=== PATIENT | female | born 1940 | race Caucasian/White ===

== ENCOUNTER → 2017-10-14 10:18 | Outpatient (CLI) | payer MEDICARE, OTHER, SELFPAY | PROVIDERS: PCP Family Medicine; Visit Provider Family Medicine | DX: M85.851 Other specified disorders of bone density and structure, right thigh (principal); Z78.0 Asymptomatic menopausal state; E07.9 Disorder of thyroid, unspecified; R29.890 Loss of height | CPT/HCPCS: 77080 ==

== ENCOUNTER → 2017-10-16 07:30 | Outpatient (CLI) | payer MEDICARE, OTHER, SELFPAY ==
[2017-10-16 09:44] LABS: Cholesterol 220 mg/dL (140-199); HDL Cholesterol 72 mg/dL (40-60); LDL Cholesterol Calculated 128 mg/dL (<100); Triglycerides 102 mg/dL (35-150)
== END ==
PROVIDERS: PCP Family Medicine; Visit Provider Family Medicine
DX: E78.2 Mixed hyperlipidemia (principal)
CPT/HCPCS: 36415; 80061

== ENCOUNTER 2018-01-19 09:34 | Observation (INO) | payer MEDICARE, OTHER, SELFPAY ==
[2018-01-19] VITALS (7 sets, daily range): BP systolic 128–159; BP diastolic 52–64; PULSE 51–60; RESP 8–16; TEMP 36.3–36.7; O2SAT 96–100; BMI 23.2
--- NOTE | 2018-01-19 10:27 | ED_ITS ---
HPI - Chest Pain General Chief Complaint: Chest Pain Stated Complaint: chest pains Time Seen by Provider: 01/19/18 10:16 Source: patient Mode of arrival: ambulatory Limitations: no limitations History of Present Illness HPI narrative: Patient is a 77-year-old female here for evaluation of off and on left-sided chest pressure. Patient states that it has been going on for the past couple days. She does state that it has radiated down her left arm and up to the left side of her neck. She states she is not currently having the pain. She states that it is not associated with any other symptoms to include shortness of breath or being worse with palpation or movement. States she had a stress test done 18 years ago which he states was normal. Has not had any cardiac workup since then. She states she does exercise 3 times a day. States that she has never had pain like this with exercise. She describes it as a pressure sensation with some sharp intermittent pains. When the symptoms do come on they last for various periods of time. Related Data Home Medications Medication Instructions Recorded Confirmed aspirin 1 tab PO QNOON 01/19/18 01/19/18 cholecalciferol (vitamin D3) 1 cap PO QNOON 01/19/18 01/19/18 [Vitamin D3] levothyroxine 1 tab PO DAILY 01/19/18 01/19/18 lisinopril 1 tab PO DAILY 01/19/18 01/19/18 sertraline 1 tab PO DAILY 01/19/18 01/19/18 triamterene-hydrochlorothiazid 1 tab PO DAILY 01/19/18 01/19/18 Allergies Allergy/AdvReac Type Severity Reaction Status Date / Time erythromycin base Allergy Severe Anxiety Verified 01/19/18 10:40 sulindac [From Clinoril] AdvReac Severe Anxiety Verified 01/19/18 10:40 Review of Systems Constitutional Denies fever(s) Eyes Denies blurry vision ENT Ears, Nose, Mouth, and Throat: Denies vertigo and Denies dizziness Cardiovascular Reports chest pain, Denies edema, Denies irregular heart rhythm, Denies palpitations, Denies dyspnea and Denies slow heart rate Respiratory Denies dyspnea Gastrointestinal Gastrointestinal: Denies abdominal pain, Denies nausea and Denies vomiting Genitourinary Denies dysuria Musculoskeletal Denies myalgias and Denies arthralgias Integumentary/Breasts Denies lesions and Denies rash Neurologic Denies vertigo and Denies dizziness Endocrine Denies palpitations Hematologic/Lymphatic Denies easy bleeding and Denies easy bruising FORMERLY [facility], [facility] Medical History Hypertension (Acute) Hypothyroid (Acute) Surgical History No pertinent past surgical history (Acute) Social History Smoking Status: Never smoker Exam Initial Vital Signs Initial Vital Signs: Vital Signs Temperature 97.3 F L 01/19/18 09:35 Pulse Rate 60 01/19/18 09:35 Respiratory Rate 13 01/19/18 09:35 Blood Pressure 159/59 H 01/19/18 09:35 Pulse Oximetry 100 01/19/18 09:35 Const General: cooperative, healthy appearing, comfortable, well developed, well groomed and No acute distress Orientation: alert, awake and oriented x3 HENMT Head: normal to inspection and normocephalic Chest Chest: normal inspection of the chest and normal palpation of entire chest wall Resp Effort & Inspection: normal respiratory effort Auscultation: clear to auscultation bilaterally Cardio Rate: regular rate Rhythm: regular rhythm Pulses: radial pulses present GI Inspection: non-distended Palpation: soft, No firm and No tender Back/Spine/Pelvis Back: No CVA tenderness Skin Lesions: no lesions Rashes: no rashes Neuro General: alert and oriented x3 Cognition: normal cognition Speech: speech normal Extrem General: normal to inspection, capillary refill normal and No edema Psych Appearance: grossly normal and well kempt Scores HEART Score Heart Score history: Moderately Suspicious Heart Score EKG: Normal Heart Score Age: > or = 65 years old Heart Score risk factors: 1-2 risk factors Heart Score troponin: < or = to normal limit Heart Score Total: 4 Course Orders Ordered: ED Orders 01/19/18 10:28 XR chest 1V Stat 01/19/18 10:30 Complete Blood Count AUTO DIFF Stat Comprehensive Metabolic Panel Stat Lipase Stat Thyroid Stimulating Hormone Stat Troponin I Stat 01/19/18 13:44 Troponin I Stat Discontinued Medications Aspirin (Aspirin Chew) 324 mg PO NOW ONE Stop: 01/19/18 10:28 Last Admin: 01/19/18 11:43 Dose: 324 mg Vital Signs - 8 hr 01/19/18 11:29 01/19/18 14:26 01/19/18 16:19 Pulse Rate 51 L 51 L 52 L Respiratory Rate 8 L 10 L 11 L Blood Pressure [Left Arm] 157/64 H 141/56 H 147/53 H Pulse Oximetry 96 97 100 01/19/18 18:38 Pulse Rate 53 L Respiratory Rate 10 L Blood Pressure [Left Arm] 158/54 H Pulse Oximetry 98 MDM - Chest Pain Lab Data Attestation: I reviewed the patient's lab results. Result diagrams: 01/19/18 10:30 01/19/18 10:30 Lab Results 01/19/18 01/19/18 01/19/18 Range/Units 10:30 10:30 10:30 WBC 6.7 (4.5-11.0) X10^3/uL RBC 4.02 (4.0-5.2) X10^6/uL Hgb 13.0 (12.0-16.0) g/dL Hct 38.1 (36-46) % MCV 94.8 (80-100) fL MCH 32.2 (26-34) PG MCHC 34.0 (30-36) % RDW 13.2 (11.6-14.8) % Plt Count 256 (150-400) X10^3/uL Neut % (Auto) 64.4 (50-75) % Lymph % (Auto) 23.7 L (25-40) % [place] % (Auto) 9.0 (3-14) % Eos % (Auto) 1.5 L (2-4) % Baso % (Auto) 1.4 (0-2) % Neut # (Auto) 4300 (2479-0446) /uL Sodium 142 (137-145) mmol/L Potassium 3.8 (3.4-5.1) mmol/L Chloride 104 (98-107) mmol/L Carbon Dioxide 29 (22-32) mmol/L BUN 29 H (7-17) mg/dL Creatinine 0.80 (0.52-1.04) mg/dL Estimated GFR > 60.0 (>60) mL/min BUN/Creatinine Ratio 36.3 H (6-22) Glucose 101 (80-110) mg/dL Calcium 9.4 (8.4-10.2) mg/dL Total Bilirubin 0.4 (0.2-1.3) mg/dL AST 23 (14-36) IU/L ALT 31 (9-52) IU/L Alkaline Phosphatase 55 (38-126) U/L Troponin I (0.01-0.034) ng/mL Total Protein 6.6 (6.3-8.2) g/dL Albumin 4.0 (3.5-5.0) g/dL Globulin 2.6 (1.7-4.1) g/dL Albumin/Globulin Ratio 1.5 (1.0-2.8) Lipase 150 (23-300) U/L TSH 3.78 (0.47-4.68) uIU/mL 01/19/18 01/19/18 Range/Units 10:30 13:44 WBC (4.5-11.0) X10^3/uL RBC (4.0-5.2) X10^6/uL Hgb (12.0-16.0) g/dL Hct (36-46) % MCV (80-100) fL MCH (26-34) PG MCHC (30-36) % RDW (11.6-14.8) % Plt Count (150-400) X10^3/uL Neut % (Auto) (50-75) % Lymph % (Auto) (25-40) % [place] % (Auto) (3-14) % Eos % (Auto) (2-4) % Baso % (Auto) (0-2) % Neut # (Auto) (8840-1338) /uL Sodium (137-145) mmol/L Potassium (3.4-5.1) mmol/L Chloride (98-107) mmol/L Carbon Dioxide (22-32) mmol/L BUN (7-17) mg/dL Creatinine (0.52-1.04) mg/dL Estimated GFR (>60) mL/min BUN/Creatinine Ratio (6-22) Glucose (80-110) mg/dL Calcium (8.4-10.2) mg/dL Total Bilirubin (0.2-1.3) mg/dL AST (14-36) IU/L ALT (9-52) IU/L Alkaline Phosphatase (38-126) U/L Troponin I < 0.012 0.014 (0.01-0.034) ng/mL Total Protein (6.3-8.2) g/dL Albumin (3.5-5.0) g/dL Globulin (1.7-4.1) g/dL Albumin/Globulin Ratio (1.0-2.8) Lipase (23-300) U/L TSH (0.47-4.68) uIU/mL Imaging Data Chest x-ray: Radiologist's impression: PROCEDURE: XR CHEST 1V INDICATIONS: chest pain TECHNIQUE: One view of the chest was acquired. COMPARISON: None. FINDINGS: Surgical changes and devices: Surgical clips in the left axilla. Status post left mastectomy. Lungs and pleura: No pleural effusions or pneumothorax. Lungs are clear. Mediastinum: Mediastinal contours appear normal. Heart size is normal. Bones and chest wall: No suspicious bony lesions. Overlying soft tissues appear unremarkable. IMPRESSION: No acute cardiopulmonary disease process. Dictated by: Melinda Park MD, PhD on 01/19/2018 at 10:39 Approved by: Melinda Park MD, PhD on 01/19/2018 at 10:40 ECG Data Attestation: I personally reviewed and interpreted this ECG as follows: Prior ECG tracings: not available for review Interpretation: Sinus rhythm Ventricular rate is 61 Normal axis Normal QRS Normal QTC Sinus arrhythmia No ST T wave changes MDM Narrative Medical decision making narrative: Patient was given aspirin here in the emergency department. She was not having any symptoms at the time of my exam. Her initial troponin was undetectable. Repeat troponin was negative but detectable. Initially patient did not want to be admitted to the hospital. After the 2nd troponin returned she stated that she would be willing to stay for further evaluation and stress testing. She does have a heart score of 4. Discussed the case with Dr. Griggs who is the patient's primary care doctor who will admit the patient for further evaluation and treatment. The patient agrees with the decision to admit. Discharge Plan Departure Patient Disposition: Admitted as Observation Clinical Impression: Chest pain Admit Date/Time: 01/19/18 17:03 Admit Provider: Cyril Griggs
[2018-01-19 10:41] LABS: Add Manual Diff / Slide Review NO; Basophils Percent Auto 1.4 % (0-2); Eosinophils Percent Auto 1.5 % (2-4); Hematocrit 38.1 % (36-46); Lymphocytes Percent Auto 23.7 % (25-40); Mean Corpuscular Hemoglobin 32.2 PG (26-34); Mean Corpuscular Volume 94.8 fL (80-100); Neutrophils Absolute Auto 4300 /uL (3000-5900); Neutrophils Percent Auto 64.4 % (50-75); Platelet Count 256 X10^3/uL (150-400); Red Blood Cell Count 4.02 X10^6/uL (4.0-5.2); Red Cell Distribution Width 13.2 % (11.6-14.8); White Blood Cell Count 6.7 X10^3/uL (4.5-11.0)
[2018-01-19 10:59] LABS: Alanine Aminotransferase 31 IU/L (9-52); Albumin Globulin Ratio 1.5 (1.0-2.8); Alkaline Phosphatase 55 U/L (38-126); Aspartate Aminotransferase 23 IU/L (14-36); BUN Creatinine Ratio 36.3 (6-22); Bilirubin Total 0.4 mg/dL (0.2-1.3); Blood Urea Nitrogen 29 mg/dL (7-17); Calcium 9.4 mg/dL (8.4-10.2); Carbon Dioxide 29 mmol/L (22-32); Chloride 104 mmol/L (98-107); Estimated Glomerular Filt Rate > 60.0 mL/min (>60); Globulin 2.6 g/dL (1.7-4.1); Glucose 101 mg/dL (80-110); HEMOLYSIS < 15 (0-50); Lipase 150 U/L (23-300); Potassium 3.8 mmol/L (3.4-5.1); Sodium 142 mmol/L (137-145); Total Protein 6.6 g/dL (6.3-8.2)
--- NOTE | 2018-01-19 11:10 | PC.NURSE ---
report received from jimena CASTELLANOS
[2018-01-19 11:35] LABS: Thyroid Stimulating Hormone 3.78 uIU/mL (0.47-4.68)
[2018-01-19 11:40] LABS: Troponin I < 0.012 ng/mL (0.01-0.034)
[2018-01-19] MEDS: ASPIRIN 81 MG TAB 324 MG PO (11:43)
[2018-01-19 14:32] LABS: Troponin I 0.014 ng/mL (0.01-0.034)
--- NOTE | 2018-01-19 19:00 | PC.NURSE ---
pt unable to be transported up stairs due to room not clean
--- NOTE | 2018-01-19 19:31 | PM.HP.1 ---
History of Present Illness Date Patient Seen: 01/19/18 Time Patient Seen: 19:32 Chief complaint: chest pains Narrative: Patient presented to the emergency department with chest pain. Chest pain symptoms started on Friday. Moderate to severe. Left chest and left arm. Maybe there was some pain up into her neck. Pain was moderate intensity inconsistent. No associated symptoms such as palpitation. No shortness of breath. She was not nauseated. She did not feel weak or lightheaded. Symptoms persisted over the weekend but he is day got better and better and better. She became concerned this morning because her pain was still present. She had also woken up this morning with night sweats. Her pain not necessarily was worse. Her pain was not exertional. Described as pressure symptoms. She has never had this before. She was initially 2 concerned because it was on the left side on her chest wall. She previously has had breast cancer in that area. She talk to her partner who recommended her be evaluated. She does not have any cardiac history. She has a long history of high blood pressure. She is not on a statin. She does not regularly take an aspirin. She is in good health. She exercises daily she is a nonsmoker. Her pain is not present now. Past medical history hypertension hypothyroidism. Patient History Medical History Hypertension (Acute) Hypothyroid (Acute) Surgical History No pertinent past surgical history (Acute) Family & Social History Family History: Reviewed 01/19/18 by Cyril Griggs MD Tobacco & Substance use: Smoking Status Never smoker alcohol intake frequency a few times a week Meds Home Medications Medication Instructions Recorded Confirmed Type aspirin 1 tab PO QNOON 01/19/18 01/19/18 History cholecalciferol (vitamin D3) 1 cap PO QNOON 01/19/18 01/19/18 History [Vitamin D3] levothyroxine 1 tab PO DAILY 01/19/18 01/19/18 History lisinopril 1 tab PO DAILY 01/19/18 01/19/18 History sertraline 1 tab PO DAILY 01/19/18 01/19/18 History triamterene-hydrochlorothiazid 1 tab PO DAILY 01/19/18 01/19/18 History Allergies Allergy/AdvReac Type Severity Reaction Status Date / Time erythromycin base Allergy Severe Anxiety Verified 01/19/18 10:40 sulindac [From Clinoril] AdvReac Severe Anxiety Verified 01/19/18 10:40 Exam Vital Signs (past 8 hours): - 01/19/18 14:26 01/19/18 16:19 01/19/18 18:38 Pulse Rate 51 L 52 L 53 L Respiratory Rate 10 L 11 L 10 L Blood Pressure [Left Arm] 141/56 H 147/53 H 158/54 H Pulse Oximetry 97 100 98 Oxygen Delivery Method Room Air Narrative Exam Narrative: Gen.: Alert and oriented x3 no apparent distress. HEENT: NCAT PERRLA tympanic membranes are clear nares are patent oral mucosa is moist no tonsillar hypertrophy neck is supple without lymphadenopathy no thyroid enlargement. Cardio: S1-S2 regular rate and rhythm no murmurs appreciated. Respiratory: Lungs are clear to auscultation no wheezes or crackles normal respiratory effort. Abdomen: Soft nontender no rebound or guarding no liver spleen enlargement no appreciable hernias Extremities: Full range of motion no appreciable weakness no cyanosis or edema. Neurologic: Grossly intact. Objective Labs Result Diagrams: 01/19/18 10:30 01/19/18 10:30 Labs: Laboratory Results - last 24 hr 01/19/18 01/19/18 01/19/18 10:30 10:30 10:30 WBC 6.7 RBC 4.02 Hgb 13.0 Hct 38.1 MCV 94.8 MCH 32.2 MCHC 34.0 RDW 13.2 Plt Count 256 Neut % (Auto) 64.4 Lymph % (Auto) 23.7 L [place] % (Auto) 9.0 Eos % (Auto) 1.5 L Baso % (Auto) 1.4 Neut # (Auto) 4300 Sodium 142 Potassium 3.8 Chloride 104 Carbon Dioxide 29 BUN 29 H Creatinine 0.80 Estimated GFR > 60.0 BUN/Creatinine Ratio 36.3 H Glucose 101 Calcium 9.4 Total Bilirubin 0.4 AST 23 ALT 31 Alkaline Phosphatase 55 Troponin I Total Protein 6.6 Albumin 4.0 Globulin 2.6 Albumin/Globulin Ratio 1.5 Lipase 150 TSH 3.78 01/19/18 01/19/18 10:30 13:44 WBC RBC Hgb Hct MCV MCH MCHC RDW Plt Count Neut % (Auto) Lymph % (Auto) [place] % (Auto) Eos % (Auto) Baso % (Auto) Neut # (Auto) Sodium Potassium Chloride Carbon Dioxide BUN Creatinine Estimated GFR BUN/Creatinine Ratio Glucose Calcium Total Bilirubin AST ALT Alkaline Phosphatase Troponin I < 0.012 0.014 Total Protein Albumin Globulin Albumin/Globulin Ratio Lipase TSH Assessment & Plan Plan: Assessment/Plan Narrative: Patient admitted with chest pain. Rule out myocardial infarction. First set of cardiac enzyme is normal. EKG shows normal sinus rhythm without changes. She is on an aspirin. She has no pain at this time. Her blood pressure is stable but a little bit high. Will go ahead and admit her for further workup and evaluation with serial cardiac enzymes. Will repeat an EKG tomorrow morning. We will proceed with a nuclear medicine stress test if we are able to. Will provide with her home medication including her thyroid and blood pressure medication. Provide nitroglycerin and morphine if she has chest pain keep her on telemetry monitoring. I will hold off on beta blockade at this point as her 1st set of troponin was negative and we are going to try to stress her tomorrow. Follow this works out well she will probably go home tomorrow as well.
[2018-01-19 20:20] LABS: Troponin I 0.015 ng/mL (0.01-0.034)
[2018-01-20] VITALS (8 sets, daily range): BP systolic 120–156; BP diastolic 53–76; PULSE 51–59; RESP 16–18; TEMP 36.4–36.8; O2SAT 96–98
--- NOTE | 2018-01-20 | DI.ECHO.S_ITS ---
[facility]---------+ [facility] +---------+ : : [address] [place] [place] : : : : [id number] : : : : Phone: [phone] Echocardiogram Report + + :Name: CHRISTIANO MARRUFO Study Date: 01/20/2018 Height: 63 in : :[facility] Weight: 133 lb : : Gender: Female BSA: 1.6 m2 : :: 1940 Age: 77 yrs BP: 137/56 mmHg: :Reason For Study: Chest pain : : Performed By: Manisha Ohara : :Referring: ASHISH MANLEY : + + Interpretation Summary The ejection fraction is estimated to be 60-65%. There is no significant valvular heart disease. Procedure: A two-dimensional transthoracic echocardiogram with color flow and Doppler was performed. The study quality was technically adequate. There is no prior echocardiogram noted for this patient. The patient was in normal sinus rhythm during the exam. Left Ventricle: The left ventricle is normal in size, wall thickness, and systolic function without any focal wall motion abnormalities. The ejection fraction is estimated to be 60-65%. Diastolic parameters suggest probable normal left ventricular diastolic function and normal filling pressures. Right Ventricle: The right ventricle grossly appears normal in size with probable normal systolic function. Atria: The left atrial size is normal. Right atrial size is normal. The interatrial septum is intact with no evidence for an atrial septal defect. Mitral Valve: The mitral valve is normal in structure and function. There is trace mitral regurgitation. Aortic Valve: The aortic valve is trileaflet. The aortic valve opens well. No aortic regurgitation is present. Tricuspid Valve: The tricuspid valve is normal in structure and function. There is trace tricuspid regurgitation. The right ventricular systolic pressure is estimated to be at least 27 mmHg based on an estimated right atrial pressure of 3 mm Hg. Pulmonic Valve: The pulmonic valve is not well seen, but is grossly normal. There is trace pulmonic regurgitation. Great Vessels: The aortic root is normal size. The dimensions of the ascending aorta are normal. The IVC is of normal diameter and collapses greater than 50% with a sniff. This suggests a low right atrial pressure of 3 mm Hg. Pericardium/ Pleura There is no pericardial effusion. There is no pleural effusion. MMode/2D Measurements & Calculations LVIDd: 4.5 cm Ao root diam: 2.9 cm LVIDs: 3.2 cm Aortic Jxn: 2.4 cm FS: 30.3 % asc Aorta Diam: 3.1 cm IVSd: 0.90 cm Ao Arch Diam (Prox Trans): 2.9 cm LVPWd: 0.86 cm LV bellamy. diameter/BSA (cm/m^2): 2.8 LV sys. diameter/BSA (cm/m^2): 1.9 LA dimension: 3.4 cm RA long axis: 4.6 cm LA A2 area: 15.0 cm2 RA area: 13.7 cm2 LA A4 area: 16.3 cm2 RA vol: 34.3 ml LA length (vol): 4.5 cm RA : 21.1 ml/m2 LA vol: 46.3 ml IVC diam: 1.4 cm LA vol index: 28.5 ml/m2 RVDd major: 4.9 cm RVD1 (basal): 3.4 cm RVD2 (mid): 2.7 cm Doppler Measurements & Calculations Ao V2 max: 137.2 cm/sec MV E max chuy: 51.2 cm/sec Ao V2 mean: 92.1 cm/sec MV A max chuy: 71.4 cm/sec Ao max P.5 mmHg MV E/A: 0.72 Ao mean P.9 mmHg Med Peak E' Chuy: 6.5 cm/sec Ao V2 VTI: 33.2 cm E/E' med: 7.8 Lat Peak E' Chuy: 10.5 cm/sec E/E' lat: 4.9 E/e' average: 6.3 MV dec time: 0.34 sec MV P1/2t: 100.5 msec TR max chuy: 246.5 cm/sec MV P1/2t max chuy: 50.9 cm/sec TR max P.3 mmHg MVA(P1/2t): 2.2 cm2 PA V2 max: 78.9 cm/sec PA V2 mean: 51.8 cm/sec PA mean P.3 mmHg PA Accel Time: 0.14 sec Reading Physician:05:05 PM
--- NOTE | 2018-01-20 02:09 | PC.NURSE ---
Addendum entered by Raysa Minor R.N. 01/20/18 06:52: correction to previous charting: tele was SB this shift. Original Note: Addendum entered by Raysa Minor R.N. 01/20/18 06:52: Slept most of shift. Has had no chest pains tonight. Tele remains SR Original Note: Patient is alert and oriented. Breath sounds CTA with RA sat of 96%. HRR but bradycardic with rate in 50's; telemetry reading was SB. Denies nausea. BT present and abdomen is soft. Denies dysuria, frequency, urgency or incontinence. Independent with mobility. Denies pain. Fall risk score is low.
[2018-01-20 03:46] LABS: Add Manual Diff / Slide Review NO; Basophils Percent Auto 1.3 % (0-2); Eosinophils Percent Auto 2.6 % (2-4); Hemoglobin 12.9 g/dL (12.0-16.0); Lymphocytes Percent Auto 33.8 % (25-40); Mean Corpuscular HGB Conc 33.8 % (30-36); Mean Corpuscular Hemoglobin 32.4 PG (26-34); Mean Corpuscular Volume 95.8 fL (80-100); Monocytes Percent Auto 9.1 % (3-14); Neutrophils Absolute Auto 4000 /uL (3000-5900); Neutrophils Percent Auto 53.2 % (50-75); Platelet Count 235 X10^3/uL (150-400); Red Blood Cell Count 3.97 X10^6/uL (4.0-5.2); Red Cell Distribution Width 13.3 % (11.6-14.8); White Blood Cell Count 7.5 X10^3/uL (4.5-11.0)
[2018-01-20 03:55] LABS: Alanine Aminotransferase 31 IU/L (9-52); Albumin 3.6 g/dL (3.5-5.0); Albumin Globulin Ratio 1.4 (1.0-2.8); Alkaline Phosphatase 51 U/L (38-126); Aspartate Aminotransferase 22 IU/L (14-36); Bilirubin Total 0.5 mg/dL (0.2-1.3); Blood Urea Nitrogen 24 mg/dL (7-17); Calcium 9.3 mg/dL (8.4-10.2); Carbon Dioxide 29 mmol/L (22-32); Chloride 104 mmol/L (98-107); Cholesterol 220 mg/dL (140-199); Estimated Glomerular Filt Rate > 60.0 mL/min (>60); Globulin 2.5 g/dL (1.7-4.1); Glucose 100 mg/dL (80-110); HDL Cholesterol 65 mg/dL (40-60); HEMOLYSIS < 15 (0-50); LDL Cholesterol Calculated 137 mg/dL (<100); Potassium 3.7 mmol/L (3.4-5.1); Sodium 141 mmol/L (137-145); Total Protein 6.1 g/dL (6.3-8.2); Triglycerides 88 mg/dL (35-150)
[2018-01-20 04:06] LABS: Troponin I < 0.012 ng/mL (0.01-0.034)
--- NOTE | 2018-01-20 07:00 | DI.NM.S_ITS ---
PROCEDURE: MA WILBERT PERF SPECT SINGLE STUDY Exercise myocardial perfusion SPECT with gated imaging and ejection fraction RADIOPHARMACEUTICAL: 21.5 mCi Tc-99m sestamibi IV at peak exercise. INDICATIONS: chest pain TECHNIQUE: Radiopharmaceutical was injected at peak stress test. SPECT images were obtained, with perfusion images in short axis, horizontal long axis, and vertical long axis views. Gated images were reviewed using [employer] software. COMPARISON: [facility], , MA MYOCARDIAL PERFUSION, 04/11/2001, 12:22. CARDIAC STRESS: A standard Matt treadmill exercise tolerance test was performed by the patient under the supervision of an attending staff. The patient exercised for 3 minutes and 37 seconds reaching 4.6 METs; functional aerobic impairment (CAMELIA) is 0 %. Hemodynamic data: There is normal blood pressure and heart response to exercise. Patient achieved 101% of maximum predicted heart rate. Symptoms: Patient denied anginal chest pain during exercise. EKG: No diagnostic changes of ischemia; no ectopy. FINDINGS: Raw data: There is good labeling of myocardium by radiotracer. No significant motion artifacts. Uljn-vp-rhpva ratio is 0.15 (normal is less than 0.38 for sestamibi tracer, and less than 0.50 for thallium tracer). Left ventricular function: Gated images demonstrate normal left ventricle wall thickening. No segmental wall motion abnormalities. Left ventricle end diastolic volume is 80 mL. Left ventricle stress ejection fraction is 70%; normal values are above 45%. Myocardial perfusion: Small apical defect on stress images that improve with prone imaging, suggesting apical thinning artifact that was also seen on prior study dated 04/11/2001. IMPRESSION: Low risk, probably normal treadmill stress only nuclear test 1) Probably normal perfusion images. Small apical defect on stress images that improve with prone imaging, suggesting apical thinning artifact that was also seen on prior study dated 04/11/2001. 2) Normal left ventricular size, wall motion, and systolic function (post stress EF 70%). 3) No ECG evidence of ischemia. 4) No chest pain with exercise. 5) Average exercise capacity (4.6 METs, CAMELIA 0%). Target heart rate achieved. Appropriate blood pressure response to exercise. 6) Compared to the prior nuclear stress test done 04/11/2001, no significant change in perfusion images. Test results discussed with Dr. Cyril Griggs on 01/20/2018 at 1615. Dictated by: Madison Mcfadden MD on 01/20/2018 at 16:10 Approved by: Madison Mcfadden MD on 01/20/2018 at 16:16
--- NOTE | 2018-01-20 07:17 | P.DS_ITS ---
History of Present Illness Chief complaint: chest pains Narrative: Patient presented to the emergency department with chest pain. Chest pain symptoms started on Friday. Moderate to severe. Left chest and left arm. Maybe there was some pain up into her neck. Pain was moderate intensity inconsistent. No associated symptoms such as palpitation. No shortness of breath. She was not nauseated. She did not feel weak or lightheaded. Symptoms persisted over the weekend but he is day got better and better and better. She became concerned this morning because her pain was still present. She had also woken up this morning with night sweats. Her pain not necessarily was worse. Her pain was not exertional. Described as pressure symptoms. She has never had this before. She was initially 2 concerned because it was on the left side on her chest wall. She previously has had breast cancer in that area. She talk to her partner who recommended her be evaluated. She does not have any cardiac history. She has a long history of high blood pressure. She is not on a statin. She does not regularly take an aspirin. She is in good health. She exercises daily she is a nonsmoker. Her pain is not present now. Past medical history hypertension hypothyroidism. Discharge Providers Date of admission: 01/19/18 17:03 Discharge provider: Cyril Griggs MD Discharge Date: 01/20/18 Summary Discharge Diagnosis: Chest pain negative cardiac enzymes x3 normal EKG Hypertension Hyperlipidemia Hypothyroidism Remote history of breast cancer Hospital Course: Patient was admitted the hospital with chest pain. She had serial cardiac enzymes and troponins which were negative. She had no further episode or chest pain during hospital stay. EKG was reviewed which is normal. She was given aspirin Stephen inhibitors and no beta blockers because of potential possibility of doing stress test. At the time this note echocardiogram and stress test are pending. Due to patient's serial negative cardiac enzymes. Patient's history. I have a feeling these 2 tests will be unremarkable. We will proceed with echocardiogram. If stress test is not able to be done in the hospital today we will discharge the patient and she will go home and have a stress test as an outpatient. Exam Vital Signs (past 8 hours): - 01/20/18 01:55 01/20/18 02:01 01/20/18 05:33 Temperature 97.6 F 97.8 F Pulse Rate 51 L 52 L Respiratory Rate 17 18 Blood Pressure 125/68 120/65 Pulse Oximetry 96 96 98 Oxygen Delivery Method Room Air Narrative Exam Narrative: Gen.: Alert and oriented x3 no apparent distress. HEENT: NCAT PERRLA tympanic membranes are clear nares are patent oral mucosa is moist no tonsillar hypertrophy neck is supple without lymphadenopathy no thyroid enlargement. Cardio: S1-S2 regular rate and rhythm no murmurs appreciated. Respiratory: Lungs are clear to auscultation no wheezes or crackles normal respiratory effort. Abdomen: Soft nontender no rebound or guarding no liver spleen enlargement no appreciable hernias Extremities: Full range of motion no appreciable weakness no cyanosis or edema. Neurologic: Grossly intact. Objective Labs Result Diagrams: 01/20/18 03:35 01/20/18 03:35 Labs: Laboratory Results - last 24 hr 01/19/18 01/19/18 01/19/18 10:30 10:30 10:30 WBC 6.7 RBC 4.02 Hgb 13.0 Hct 38.1 MCV 94.8 MCH 32.2 MCHC 34.0 RDW 13.2 Plt Count 256 Neut % (Auto) 64.4 Lymph % (Auto) 23.7 L [place] % (Auto) 9.0 Eos % (Auto) 1.5 L Baso % (Auto) 1.4 Neut # (Auto) 4300 Sodium 142 Potassium 3.8 Chloride 104 Carbon Dioxide 29 BUN 29 H Creatinine 0.80 Estimated GFR > 60.0 BUN/Creatinine Ratio 36.3 H Glucose 101 Calcium 9.4 Total Bilirubin 0.4 AST 23 ALT 31 Alkaline Phosphatase 55 Troponin I Total Protein 6.6 Albumin 4.0 Globulin 2.6 Albumin/Globulin Ratio 1.5 Triglycerides Cholesterol LDL Cholesterol, Calc HDL Cholesterol Lipase 150 TSH 3.78 01/19/18 01/19/18 01/19/18 10:30 13:44 19:50 WBC RBC Hgb Hct MCV MCH MCHC RDW Plt Count Neut % (Auto) Lymph % (Auto) [place] % (Auto) Eos % (Auto) Baso % (Auto) Neut # (Auto) Sodium Potassium Chloride Carbon Dioxide BUN Creatinine Estimated GFR BUN/Creatinine Ratio Glucose Calcium Total Bilirubin AST ALT Alkaline Phosphatase Troponin I < 0.012 0.014 0.015 Total Protein Albumin Globulin Albumin/Globulin Ratio Triglycerides Cholesterol LDL Cholesterol, Calc HDL Cholesterol Lipase TSH 01/20/18 01/20/18 03:35 03:35 WBC 7.5 RBC 3.97 L Hgb 12.9 Hct 38.0 MCV 95.8 MCH 32.4 MCHC 33.8 RDW 13.3 Plt Count 235 Neut % (Auto) 53.2 Lymph % (Auto) 33.8 [place] % (Auto) 9.1 Eos % (Auto) 2.6 Baso % (Auto) 1.3 Neut # (Auto) 4000 Sodium 141 Potassium 3.7 Chloride 104 Carbon Dioxide 29 BUN 24 H Creatinine 0.80 Estimated GFR > 60.0 BUN/Creatinine Ratio 30.0 H Glucose 100 Calcium 9.3 Total Bilirubin 0.5 AST 22 ALT 31 Alkaline Phosphatase 51 Troponin I < 0.012 Total Protein 6.1 L Albumin 3.6 Globulin 2.5 Albumin/Globulin Ratio 1.4 Triglycerides 88 Cholesterol 220 H LDL Cholesterol, Calc 137 H HDL Cholesterol 65 H Lipase TSH Discharge Plan Discharge Plan Discharge Problem: Chest pain Under care of provider: Duc Discharge comment: Patient will be discharged after echo test and stress test. If stress test is not able to be completed in the hospital today please schedule for outpatient either in [place] or [facility] Discharge Med Rec/Prescriptions Prescriptions: Continue triamterene-hydrochlorothiazid 37.5-25 mg capsule 1 tab PO DAILY RF: 0 lisinopril 10 mg tablet 1 tab PO DAILY RF: 0 sertraline 50 mg tablet 1 tab PO DAILY RF: 0 levothyroxine 112 mcg tablet 1 tab PO DAILY RF: 0 aspirin 81 mg Tablet,Delayed Release (Dr/Ec) 1 tab PO QNOON RF: 0 cholecalciferol (vitamin D3) [Vitamin D3] 1,000 unit Capsule 1 cap PO QNOON RF: 0 Discharge Orders: Discharge (Order); Ordered 01/20/18 Ordered By: Cyril Griggs Discharge Data Attending Provider: Cyril Griggs Admit Date/Time: 01/19/18 17:03 Quality VTE Deep Vein Thrombosis/Pulmonary Embolism Present on Admission: No
[2018-01-20] MEDS: SODIUM CHLORIDE 0.9% FLUSH 10 ML IV (08:44)
[2018-01-20] MEDS: LEVOTHYROXINE 112 MCG TABLET PO (10:05)
[2018-01-20] MEDS: ACETAMINOPHEN 325 MG TABLET 650 MG PO (10:05)
--- NOTE | 2018-01-20 10:43 | PC.NURSE ---
Addendum entered by César Collins 01/20/18 13:38: Pt returned from stress test at 1320. Morning medications given per MAR. Plan for echocardiogram at 1500. Original Note: Assumed pt care at 0700. Pt is a/o x3. Pt is NPO prior to stress test at 1145. Pt aware that echocardiogram may be scheduled as outpatient if she cannot be seen today. Plan for D/C today pending stress test/echo results. Medicated per MAR with PRN Tylenol for pain of 5/10 headache. Bed in lowest, locked position with call light within reach. Care continues.
--- NOTE | 2018-01-20 11:16 | CM.DANOTE ---
DCP: Case received, EMR reviewed and met with patient. Introduced self and role. DCP template completed with information currently available. Patient is a 77 year old female who admitted yesterday evening to the care of the hospitalist team. PCP: Medicare/[facility] Patient came to hospital with symptoms of chest pain. Patient independent, pleasant, and alert and oriented. Lives alone in [facility], and has a significant other that lives down the street from her. Patient has no immediate needs at this time upon discharge. P: Patient is to be discharged home today after stress test is complete. Emily Rodgers RN/Architectural Drafting Instructor
--- NOTE | 2018-01-20 12:26 | PM.TREADMILL ---
Cardiac Stress Test Report Referral & Results Date Patient Seen: 01/20/18 Time Patient Seen: 12:26 Requesting provider: Cyril Griggs Indication: Chest pain Rest ECG: Unremarkable Procedure Note: Today following both written and verbal informed consent the patient was exercised according to a standard Matt protocol patient went for a total of 3 min 37 sec achieving a maximum heart rate of 147 maximum systolic blood pressure of 116. This is approximately 4.6 METS. Exercise was terminated at this point because of targets having been reached. Patient was also given Cardiolite through a previously started Hep-Lock IV by the nuclear medicine physician approximately 1 minute prior to the cessation of exercise. There are no ST-T segment changes identified Normal heart rate and blood pressure response Functional aerobic impairment rates about 0 on the sedentary scale or perhaps 5% on the active scale. Patient could have continued longer on the treadmill but she was stopped early because of having reach the targets for heart rate and blood pressure Impression: No ECG evidence of ischemia Perfusion imaging will be reported separately Please note: Actual ECG tracings can be found in the PACS system.
[2018-01-20] MEDS: ASPIRIN EC 325 MG TABLET PO (13:16)
[2018-01-20] MEDS: SERTRALINE 50 MG TABLET PO (13:16)
[2018-01-20] MEDS: LISINOPRIL 10 MG TABLET PO (13:16)
[2018-01-20] MEDS: TRIAMTERENE/HCTZ 37.5/25 TABLET 1 CAP PO (13:17)
--- NOTE | 2018-01-20 15:27 | PC.NURSE ---
Day Shift- Pt A&OX4, appropriate, able to make her needs known, Denies any chest pain throughout shift. No Light-headedness/dizziness on rest or ambulation. Able to eat breakfast then NPO, left for NM Stress Test at 1150 via wheelchair and transporter. Back around 1325, Telemetry monitoring placed back on. Pt had lunch, ambulated in halls with steady gait without symptoms. Awaiting to have ECHO around 3pm or just after. Tylenol po prn given X1 for 5/10 headache at 1000. Effective, headache resolved. Pt states is ready to go home today.
== END 2018-01-20 17:08 | disposition home or self-care (01) ==
LOC: ED 16:37 → AC 17:04
PROVIDERS: Admitting Provider Family Medicine; Emergency Provider Emergency Medicine; Visit Provider Family Medicine
DX: R07.9 Chest pain, unspecified (principal); I10 Essential (primary) hypertension; E78.5 Hyperlipidemia, unspecified; E03.9 Hypothyroidism, unspecified
CPT/HCPCS: 36415; 36591; 71045; 78451; 80053; 80061; 83690; 84443; 84484; 85025; 93005; 93010; 93016; 93017; 93018; 93306; 99217; 99220; 99223; 99238; 99283; 99284; G0378; A9502

== ENCOUNTER → 2018-06-02 07:52 | Outpatient (CLI) | payer MEDICARE, OTHER, SELFPAY ==
[2018-01-19 21:35] VITALS: BMI 23.2
[2018-06-02 08:52] LABS: Add Manual Diff / Slide Review NO; Basophils Absolute Auto 100 /uL (0-100); Basophils Percent Auto 1.4 % (0-2); Eosinophils Absolute Auto 200 /uL (0-450); Eosinophils Percent Auto 4.1 % (2-4); Hematocrit 39.5 % (36-46); Hemoglobin 13.1 g/dL (12.0-16.0); Lymphocytes Absolute Auto 1800 /uL (1100-4500); Lymphocytes Percent Auto 33.5 % (25-40); Mean Corpuscular HGB Conc 33.1 % (30-36); Mean Corpuscular Volume 96.5 fL (80-100); Monocytes Absolute Auto 500 /uL (0-900); Monocytes Percent Auto 9.1 % (3-14); Neutrophils Absolute Auto 2700 /uL (1500-7000); Neutrophils Percent Auto 51.9 % (50-75); Platelet Count 265 X10^3/uL (150-400); Red Blood Cell Count 4.09 X10^6/uL (4.0-5.2); Red Cell Distribution Width 13.5 % (11.6-14.8); White Blood Cell Count 5.3 X10^3/uL (4.5-11.0)
[2018-06-02 09:20] LABS: Alanine Aminotransferase 39 IU/L (9-52); Albumin 4.2 g/dL (3.5-5.0); Albumin Globulin Ratio 1.4 (1.0-2.8); Alkaline Phosphatase 48 U/L (38-126); Aspartate Aminotransferase 25 IU/L (14-36); BUN Creatinine Ratio 34.4 (6-22); Bilirubin Total 0.5 mg/dL (0.2-1.3); Blood Urea Nitrogen 31 mg/dL (7-17); Calcium 9.6 mg/dL (8.4-10.2); Carbon Dioxide 29 mmol/L (22-32); Chloride 103 mmol/L (98-107); Cholesterol 238 mg/dL (140-199); Estimated Glomerular Filt Rate > 60.0 mL/min (>60); Globulin 2.9 g/dL (1.7-4.1); Glucose 93 mg/dL (80-110); HDL Cholesterol 64 mg/dL (40-60); HEMOLYSIS < 15 (0-50); LDL Cholesterol Calculated 153 mg/dL (<100); Potassium 4.3 mmol/L (3.4-5.1); Sodium 137 mmol/L (137-145); Total Protein 7.1 g/dL (6.3-8.2); Triglycerides 105 mg/dL (35-150)
[2018-06-02 09:54] LABS: TSH w/ Reflex to FT4 2.89 uIU/mL (0.47-4.68)
== END ==
PROVIDERS: PCP Family Medicine; Visit Provider Family Medicine
DX: C50.919 Malignant neoplasm of unspecified site of unspecified female breast (principal); E03.9 Hypothyroidism, unspecified; E78.5 Hyperlipidemia, unspecified
CPT/HCPCS: 36415; 80053; 80061; 84443; 85025

== ENCOUNTER 2018-10-20 07:39 | Day surgery (SDC) | payer MEDICARE, OTHER, SELFPAY ==
[2018-01-19 21:35] VITALS: BMI 23.2
[2018-10-20] MEDS: SODIUM CHLORIDE 0.9% 1,000 ML 200 ML IV (08:00)
[2018-10-20 08:10] VITALS: BP 147/66; PULSE 54; RESP 16; TEMP 36.1; O2SAT 100; BMI 22.6
--- NOTE | 2018-10-20 08:59 | PM.HP.1 ---
History of Present Illness Date Patient Seen: 10/20/18 Time Patient Seen: 08:50 Chief complaint: [id number] Narrative: Patient is a woman who is had here for screening colonoscopy. Her last exam was 6 years ago. She has a personal history of polyps. No family history of colon cancer. Patient History Medical History Hypertension (Acute) Hypothyroid (Acute) Breast cancer (Chronic) Depression (Chronic) GERD (gastroesophageal reflux disease) (Chronic) Hearing deficit (Chronic) Hypertension (Chronic) Hypothyroidism (Chronic ~1979) Osteopenia (Chronic ~2014) Psoriasis (Chronic ~2013) Vertigo (Chronic ~2012) Abnormal Pap smear of cervix (Resolved) Surgical History No pertinent past surgical history (Acute) Anesthesia (Resolved) History of hip replacement History of lumpectomy (~1989) History of total mastectomy (~2011) Family History Brother Age: 78 High cholesterol Overweight Mother Hypertension High cholesterol Stroke Father Dementia Grandfather Stroke Grandmother No problems noted. Grandmother Stomach cancer Social History (System 01/21/18 @ 08:13 by Venita Trevino) marital status: household members: none Smoking Status: Never smoker alcohol intake: current (1-3 A WEEK ) substance use type: does not use Family & Social History Family History Brother Age: 78 High cholesterol Overweight Mother Hypertension High cholesterol Stroke Father Dementia Grandfather Stroke Grandmother No problems noted. Grandmother Stomach cancer Social History: household members none Tobacco & Substance use: Smoking Status Never smoker alcohol intake current alcohol intake frequency a few times a week Substance Use Type does not use Meds Home Medications Medication Instructions Recorded Confirmed Type CHOLECALCIFEROL (VITAMIN D3) 1,000 iu PO QDAY #0 05/28/11 10/20/18 History (VITAMIN D3) aspirin 81 mg tablet,delayed 81 mg PO DAILY 10/21/17 10/20/18 History release levothyroxine 112 mcg tablet 112 mcg PO QDAY #90 tab 06/08/18 10/20/18 Rx lisinopril 10 mg tablet 10 mg PO QDAY #90 tab 06/08/18 10/20/18 Rx sertraline 50 mg tablet 50 mg PO QDAY #90 tab 06/08/18 10/20/18 Rx Allergies Allergy/AdvReac Type Severity Reaction Status Date / Time erythromycin base Allergy Mild N/V Verified 06/08/18 14:05 [ERYTHROMYCIN BASE] sulindac [From CLINORIL] Allergy Mild RASH Verified 06/08/18 14:05 BETA SYLWIA Allergy Mild UNKNOWN Uncoded 06/08/18 14:05 Review of Systems Review of Systems All systems reviewed & are unremarkable except as noted in HPI and below Exam Vital Signs (past 8 hours): - 10/20/18 08:10 Temperature 96.9 F L Pulse Rate 54 L Respiratory Rate 16 Blood Pressure 147/66 H Pulse Oximetry 100 Oxygen Delivery Method Room Air Narrative Exam Narrative: Pleasant cooperative patient no apparent distress. Lungs are clear to auscultation. No rales or rhonchi. Heart regular rate and rhythm no murmur gallop. Abdomen is soft nontender without mass. No obvious hernias. Patient is alert and oriented x3. Assessment & Plan Assessment & Plan narrative: The patient for a screening colonoscopy. I have discussed the procedure with them. Risks of bleeding, perforation which would necessitate major operation, failure to find remove all lesions, the potential tattoo were all discussed. All questions were answered. They wished to proceed.
--- NOTE | 2018-10-20 09:00 | PM.PREOP ---
Pre-operative Note Interval Note History & Physical reviewed/Exam performed by Physician: Yes Changes to H&P: No ASA Class (for procedural sedation): II
[2018-10-20] MEDS: fentaNYL 250 MCG/5 ML INJ IV (09:04)
[2018-10-20] MEDS: MIDAZOLAM 5 MG/5 ML VIAL IV (09:05)
--- NOTE | 2018-10-20 09:33 | PM.OP.ENDO ---
Operative Date/Time/Diagnoses Date of procedure: 10/20/18 Time of procedure: 09:33 Pre-op diagnosis: Screening exam. Last exam 6 years ago. History of polyps. Post-op diagnosis: same (Diverticulosis scattered in small number) Procedure & Clinicians Study performed: Colonoscopy Same procedure as scheduled: Yes Indications: Screening Surgeon: Charles Lewis Procedure Notes SCOAP/Timeout: Performed Procedure in detail: The patient was placed in the left lateral decubitus position and underwent IV sedation directed by the surgeon consisting of fentanyl and Versed. Digital exam was unremarkable. The scope was inserted and advanced through the rectum into the sigmoid, descending, transverse, and ascending colon. Diverticulosis was noted scattered through the colon but few in number. We had to apply pressure and insert a stiffener in order to reach the cecum.. The cecum was reached identified by the ileocecal valve and the appendiceal opening. The ileocecal valve was successfully cannulated. The terminal ileum was normal in appearance. The scope was gradually brought out. No Polyps were found. The scope ultimately was retroflexed in the rectum. The appearance was normal except some minor scarring.. The scope was removed and the patient tolerated the procedure well Scope withdrawal time: 9.5 minutes Sedation minutes: 31 Findings: diverticulosis Recommendations: Colonscopy in 5 years (Due to history of polyps) Follow up: as needed Disposition: PACU
[2018-10-20 09:36] VITALS: BP 124/52; PULSE 60; RESP 9; TEMP 36.6; O2SAT 93
[2018-10-20 09:41] VITALS: BP 111/51; PULSE 74; RESP 23; O2SAT 94
[2018-10-20 09:48] VITALS: BP 153/65; PULSE 57; RESP 14; O2SAT 95
[2018-10-20 09:53] VITALS: BP 153/65; PULSE 55; RESP 17; O2SAT 94
[2018-10-20 10:17] VITALS: BP 138/59; PULSE 50; RESP 17; TEMP 36.4; O2SAT 98
--- NOTE | 2018-10-20 10:22 | SUR.PHASEII ---
ready to go, dressed and left in stable condition.
== END 2018-10-20 10:16 | disposition home or self-care (01) ==
PROVIDERS: PCP Family Medicine; Visit Provider Specialist
PROC: 0DJD8ZZ Inspection of Lower Intestinal Tract, Via Natural or Artificial Opening Endoscopic (ICD-10-PCS; CPT 45378; principal; 2018-10-20 08:45)
DX: Z86.010 Personal history of colon polyps (principal); K57.30 Diverticulosis of large intestine without perforation or abscess without bleeding; I10 Essential (primary) hypertension; E03.9 Hypothyroidism, unspecified
CPT/HCPCS: G0105; 99152; 99153; J2250; J3010

== ENCOUNTER → 2019-06-08 07:56 | Outpatient (CLI) | payer MEDICARE, OTHER, SELFPAY ==
[2018-01-19 21:35] VITALS: BMI 23.2
[2019-06-08 08:45] LABS: Add Manual Diff / Slide Review NO; Basophils Absolute Auto 100 /uL (0-100); Basophils Percent Auto 1.2 % (0-2); Eosinophils Absolute Auto 200 /uL (0-450); Eosinophils Percent Auto 3.9 % (2-4); Hematocrit 43.7 % (36-46); Hemoglobin 14.6 g/dL (12.0-16.0); Lymphocytes Absolute Auto 2000 /uL (1100-4500); Lymphocytes Percent Auto 34.3 % (25-40); Mean Corpuscular HGB Conc 33.5 % (30-36); Mean Corpuscular Hemoglobin 32.5 PG (26-34); Monocytes Absolute Auto 600 /uL (0-900); Monocytes Percent Auto 9.4 % (3-14); Neutrophils Absolute Auto 3100 /uL (1500-7000); Neutrophils Percent Auto 51.2 % (50-75); Platelet Count 272 X10^3/uL (150-400); Red Cell Distribution Width 13.4 % (11.6-14.8)
[2019-06-08 09:04] LABS: Alanine Aminotransferase 18 IU/L (<35); Albumin 4.3 g/dL (3.5-5.0); Albumin Globulin Ratio 1.4 (1.0-2.8); Alkaline Phosphatase 63 U/L (38-126); Aspartate Aminotransferase 22 IU/L (14-36); BUN Creatinine Ratio 28.4 (6-22); Bilirubin Total 0.4 mg/dL (0.2-1.3); Blood Urea Nitrogen 23 mg/dL (7-17); Calcium 9.8 mg/dL (8.4-10.2); Carbon Dioxide 31 mmol/L (22-32); Chloride 102 mmol/L (98-107); Cholesterol 274 mg/dL (140-199); Estimated Glomerular Filt Rate > 60.0 mL/min (>60); Globulin 3.1 g/dL (1.7-4.1); Glucose 110 mg/dL (80-110); HDL Cholesterol 59 mg/dL (40-60); HEMOLYSIS < 15 (0-50); LDL Cholesterol Calculated 188 mg/dL (<100); Potassium 4.3 mmol/L (3.4-5.1); Sodium 138 mmol/L (137-145); Total Protein 7.4 g/dL (6.3-8.2); Triglycerides 136 mg/dL (35-150)
[2019-06-08 09:59] LABS: Thyroid Stimulating Hormone 2.92 uIU/mL (0.47-4.68)
== END ==
PROVIDERS: PCP Family Medicine; Referring Provider Family Medicine; Visit Provider Family Medicine
DX: E03.9 Hypothyroidism, unspecified (principal); E78.5 Hyperlipidemia, unspecified; I10 Essential (primary) hypertension
CPT/HCPCS: 36415; 80053; 80061; 84443; 85025

== ENCOUNTER → 2019-08-21 09:57 | Outpatient (CLI) | payer MEDICARE, OTHER, SELFPAY ==
[2018-01-19 21:35] VITALS: BMI 23.2
[2019-08-21 10:07] LABS: WBC Urine None Seen (0-5/HPF)
[2019-08-21 10:48] LABS: Appearance Urine UA CLEAR; Bilirubin Urine UA NEGATIVE (NEGATIVE); Glucose Urine UA NEGATIVE (Negative); Ketones Urine UA NEGATIVE (NEGATIVE); Leukocyte Esterase Urine UA NEGATIVE (NEGATIVE); Nitrite Urine UA NEGATIVE (Negative); Occult Blood Urine UA NEGATIVE (Negative); Protein Urine UA NEGATIVE (Negative); Specific Gravity Urine UA <=1.005 (1.000-1.035); Urobilinogen Urine UA 0.2 E.U./dL (0.2)
[2019-08-21 10:53] LABS: Color Urine UA Straw
[2019-08-21 11:35] LABS: Bacteria Urine Few (2-10); Culture Indicated Urine Cult Not Indicated; RBC Urine 0-1/HPF (0-5/HPF)
== END ==
PROVIDERS: PCP Family Medicine; Referring Provider Student in an Organized Health Care Education/Training Program; Visit Provider Student in an Organized Health Care Education/Training Program
DX: R30.0 Dysuria (principal)
CPT/HCPCS: 81001

== ENCOUNTER → 2019-10-29 08:02 | Outpatient (CLI) | payer MEDICARE, OTHER, SELFPAY ==
[2018-01-19 21:35] VITALS: BMI 23.2
[2019-10-29 10:20] LABS: Cholesterol 155 mg/dL (140-199); HDL Cholesterol 79 mg/dL (40-60); LDL Cholesterol Calculated 58 mg/dL (<100); Triglycerides 90 mg/dL (35-150)
== END ==
PROVIDERS: PCP Family Medicine; Referring Provider Family Medicine; Visit Provider Family Medicine
DX: E78.5 Hyperlipidemia, unspecified (principal); E78.2 Mixed hyperlipidemia
CPT/HCPCS: 36415; 80061

== ENCOUNTER → 2020-06-19 07:58 | Outpatient (CLI) | payer MEDICARE, OTHER, SELFPAY ==
[2018-01-19 21:35] VITALS: BMI 23.2
[2020-06-19 09:00] LABS: Add Manual Diff / Slide Review NO; Basophils Absolute Auto 100 /uL (0-100); Basophils Percent Auto 1.2 % (0-2); Eosinophils Absolute Auto 300 /uL (0-450); Eosinophils Percent Auto 4.1 % (2-4); Hematocrit 43.1 % (36-46); Hemoglobin 14.6 g/dL (12.0-16.0); Lymphocytes Absolute Auto 2000 /uL (1100-4500); Lymphocytes Percent Auto 33.1 % (25-40); Mean Corpuscular HGB Conc 33.8 % (30-36); Mean Corpuscular Hemoglobin 32.8 PG (26-34); Monocytes Absolute Auto 600 /uL (0-900); Monocytes Percent Auto 10.6 % (3-14); Neutrophils Absolute Auto 3100 /uL (1500-7000); Platelet Count 242 X10^3/uL (150-400); Red Blood Cell Count 4.44 X10^6/uL (4.0-5.2); Red Cell Distribution Width 14.1 % (11.6-14.8); White Blood Cell Count 6.1 X10^3/uL (4.5-11.0)
[2020-06-19 09:08] LABS: Alanine Aminotransferase 29 IU/L (<35); Albumin 4.2 g/dL (3.5-5.0); Albumin Globulin Ratio 1.5 (1.0-2.8); Alkaline Phosphatase 80 U/L (38-126); Aspartate Aminotransferase 27 IU/L (14-36); BUN Creatinine Ratio 33.3 (6-22); Bilirubin Total 0.6 mg/dL (0.2-1.3); Blood Urea Nitrogen 27 mg/dL (7-17); Calcium 9.6 mg/dL (8.4-10.2); Carbon Dioxide 29 mmol/L (22-32); Chloride 103 mmol/L (98-107); Cholesterol 166 mg/dL (140-199); Estimated Glomerular Filt Rate > 60.0 mL/min (>60); Globulin 2.8 g/dL (1.7-4.1); Glucose 108 mg/dL (80-110); HDL Cholesterol 68 mg/dL (40-60); HEMOLYSIS < 15 (0-50); LDL Cholesterol Calculated 77 mg/dL (<100); Potassium 4.6 mmol/L (3.4-5.1); Sodium 138 mmol/L (137-145); Triglycerides 103 mg/dL (35-150)
[2020-06-19 09:36] LABS: TSH w/ Reflex to FT4 0.96 uIU/mL (0.47-4.68)
== END ==
PROVIDERS: PCP Family Medicine; Referring Provider Family Medicine; Visit Provider Family Medicine
DX: E03.9 Hypothyroidism, unspecified (principal); E78.5 Hyperlipidemia, unspecified
CPT/HCPCS: 36415; 80053; 80061; 84443; 85025

== ENCOUNTER → 2021-06-21 08:02 | Outpatient (CLI) | payer MEDICARE, OTHER, SELFPAY ==
[2018-01-19 21:35] VITALS: BMI 23.2
[2021-06-21 09:30] LABS: Add Manual Diff / Slide Review NO; Basophils Absolute Auto 100 /uL (0-100); Basophils Percent Auto 1.2 % (0-2); Eosinophils Absolute Auto 200 /uL (0-450); Eosinophils Percent Auto 5.3 % (2-4); Hematocrit 42.6 % (36-46); Hemoglobin 14.3 g/dL (12.0-16.0); Lymphocytes Absolute Auto 1900 /uL (1100-4500); Lymphocytes Percent Auto 39.6 % (25-40); Mean Corpuscular HGB Conc 33.5 % (30-36); Mean Corpuscular Hemoglobin 32.4 PG (26-34); Mean Corpuscular Volume 96.6 fL (80-100); Monocytes Absolute Auto 500 /uL (0-900); Monocytes Percent Auto 10.9 % (3-14); Neutrophils Absolute Auto 2000 /uL (1500-7000); Platelet Count 236 X10^3/uL (150-400); Red Blood Cell Count 4.41 X10^6/uL (4.0-5.2); Red Cell Distribution Width 14.2 % (11.6-14.8); White Blood Cell Count 4.7 X10^3/uL (4.5-11.0)
[2021-06-21 10:08] LABS: Alanine Aminotransferase 29 IU/L (<35); Albumin 4.2 g/dL (3.5-5.0); Albumin Globulin Ratio 1.6 (1.0-2.8); Alkaline Phosphatase 62 U/L (38-126); Aspartate Aminotransferase 26 IU/L (14-36); BUN Creatinine Ratio 28.6 (6-22); Bilirubin Total 0.8 mg/dL (0.2-1.3); Blood Urea Nitrogen 24 mg/dL (7-17); Calcium 9.3 mg/dL (8.4-10.2); Carbon Dioxide 27 mmol/L (22-32); Chloride 106 mmol/L (98-107); Cholesterol 181 mg/dL (140-199); Estimated Glomerular Filt Rate > 60.0 mL/min (>60); Globulin 2.7 g/dL (1.7-4.1); Glucose 101 mg/dL (80-110); HDL Cholesterol 69 mg/dL (40-60); HEMOLYSIS < 15 (0-50); LDL Cholesterol Calculated 98 mg/dL (<100); Potassium 4.2 mmol/L (3.4-5.1); Sodium 139 mmol/L (137-145); Total Protein 6.9 g/dL (6.3-8.2); Triglycerides 70 mg/dL (35-150)
[2021-06-21 10:44] LABS: Thyroid Stimulating Hormone 1.02 uIU/mL (0.47-4.68)
== END ==
PROVIDERS: PCP Family Medicine; Referring Provider Physician Assistant; Visit Provider Physician Assistant
DX: E03.9 Hypothyroidism, unspecified (principal); E78.5 Hyperlipidemia, unspecified; F32.9 Major depressive disorder, single episode, unspecified; I10 Essential (primary) hypertension
CPT/HCPCS: 36415; 80053; 80061; 84443; 85025

== ENCOUNTER 2022-03-25 11:26 | Emergency (ER) | payer MEDICARE, OTHER, SELFPAY ==
[2018-01-19 21:35] VITALS: BMI 23.2
[2022-03-25] VITALS (18 sets, daily range): BP systolic 150–194; BP diastolic 60–117; PULSE 49–67; RESP 11–22; TEMP 36.6; O2SAT 96–99; BMI 24.7
--- NOTE | 2022-03-25 11:35 | DI.RAD.S_ITS ---
PROCEDURE: XR CHEST 1V INDICATIONS: chest pain TECHNIQUE: One view of the chest was acquired. COMPARISON: [facility], CR, XR CHEST 1V, 01/19/2018, 10:31. FINDINGS: Surgical changes and devices: Left axillary clips are seen. Mediastinal clips are also seen. Lungs and pleura: On this semiupright portable chest examination, no large pneumothorax or large pleural effusions are seen. No focal infiltrates are seen. Low lung volumes are noted. This causes a crowded appearance to the lung markings and limits evaluation. Mediastinum: Mediastinal contours appear normal. Heart size is normal. Calcification Bones and chest wall: No suspicious bony lesions. Age-appropriate bony degenerative changes are seen. Overlying soft tissues appear unremarkable. IMPRESSION: No acute cardiopulmonary process is seen. Postoperative and degenerative changes are seen. Dictated by: Germain Syed M.D. on 03/25/2022 at 11:07 Approved by: Germain Syed M.D. on 03/25/2022 at 11:09
[2022-03-25 12:04] LABS: Add Manual Diff / Slide Review NO; Basophils Absolute Auto 100 /uL (0-100); Eosinophils Absolute Auto 100 /uL (0-450); Hematocrit 40.6 % (36-46); Hemoglobin 13.4 g/dL (12.0-16.0); Lymphocytes Absolute Auto 1500 /uL (1100-4500); Lymphocytes Percent Auto 21.8 % (25-40); Mean Corpuscular HGB Conc 33.1 % (30-36); Mean Corpuscular Hemoglobin 32.3 PG (26-34); Mean Corpuscular Volume 97.5 fL (80-100); Monocytes Absolute Auto 500 /uL (0-900); Monocytes Percent Auto 7.2 % (3-14); Neutrophils Absolute Auto 4800 /uL (1500-7000); Platelet Count 257 X10^3/uL (150-400); Red Blood Cell Count 4.17 X10^6/uL (4.0-5.2); Red Cell Distribution Width 13.9 % (11.6-14.8); White Blood Cell Count 6.9 X10^3/uL (4.5-11.0)
[2022-03-25 12:21] LABS: Alanine Aminotransferase 29 IU/L (<35); Albumin 4.2 g/dL (3.5-5.0); Albumin Globulin Ratio 1.4 (1.0-2.8); Alkaline Phosphatase 66 U/L (38-126); Aspartate Aminotransferase 29 IU/L (14-36); BUN Creatinine Ratio 31.9 (6-22); Bilirubin Total 0.5 mg/dL (0.2-1.3); Blood Urea Nitrogen 23 mg/dL (7-17); Calcium 9.2 mg/dL (8.4-10.2); Carbon Dioxide 26 mmol/L (22-32); Chloride 106 mmol/L (98-107); Creatine Kinase 56 U/L (30-135); Estimated Glomerular Filt Rate > 60 mL/min (>60); Glucose 140 mg/dL (80-110); HEMOLYSIS 17 (0-50); Lipase 169 U/L (23-300); Potassium 3.5 mmol/L (3.4-5.1); Sodium 142 mmol/L (137-145); Total Protein 7.2 g/dL (6.3-8.2)
[2022-03-25 12:23] LABS: COVID19 -Nasal RAPID Negative (Negative)
[2022-03-25 12:32] LABS: Troponin I < 0.012 ng/mL (0.01-0.034)
[2022-03-25 12:50] LABS: PTT Partial Thromboplastin Tim 41 SECONDS (26-36)
--- NOTE | 2022-03-25 14:05 | ED.CHESTPAIN ---
HPI - Chest Pain General Chief Complaint: Chest Pain Stated Complaint: Left chest pain Time Seen by Provider: 03/25/22 11:44 Source: patient and EMS Mode of arrival: EMS Limitations: no limitations History of Present Illness HPI narrative: Patient is a 81-year-old female history of hypertension, hypothyroid hyperlipidemia, breast cancer with left-sided mastectomy, prior costochondritis presenting today with left-sided chest pain. She says it has been ongoing for about a week. It is definitely worse in certain positions, if she stretches her arm out she can reproduce it. She says it feels like when she is had costochondritis previously. She says that she does lift weights to try and stay healthy. She does not remember doing anything abnormal she is been lifting weights for long time. She denies any shortness of breath. She did take some Advil for pain and did not really help a lot. She said she started feeling some achiness and numbness down her left arm which what is what brought her to the ED today. Related Data Home Medications Medication Instructions Recorded Confirmed CHOLECALCIFEROL (VITAMIN D3) 1,000 iu PO QDAY ##0 05/28/11 06/19/21 (VITAMIN D3) vit C 250 mg-E 90 mg-zinc 40 1 tab PO QAM AND QPM 06/19/21 06/19/21 mg-copper 1 tq-xvhzce-madjpu chew tablet (PreserVision AREDS-2) Previous Rx's Medication Instructions Recorded atorvastatin 20 mg tablet 20 mg PO DAILY #90 tabs 06/19/21 levothyroxine 112 mcg tablet 112 mcg PO QDAY #90 tabs 06/19/21 (Synthroid) lisinopril 10 mg tablet 10 mg PO QDAY #90 tabs 06/19/21 sertraline 50 mg tablet (Zoloft) 50 mg PO QDAY #90 tabs 06/19/21 Allergies Allergy/AdvReac Type Severity Reaction Status Date / Time Beta-Blockers Allergy Mild UNKNOWN Verified 03/25/22 11:47 (Beta-Adrenergic Bloc erythromycin base Allergy Mild N/V Verified 06/19/21 10:19 [ERYTHROMYCIN BASE] sulindac [From CLINORIL] Allergy Mild RASH Verified 06/19/21 10:19 Review of Systems Review of Systems ROS Unobtainable: All systems reviewed & are unremarkable except as noted in HPI and below Patient History Medical History Abnormal Pap smear of cervix Breast cancer Depression GERD (gastroesophageal reflux disease) Hearing deficit Hypertension Hypertension Hypothyroid Hypothyroidism (~1979) Malignant neoplasm of female breast Osteopenia (~2014) Psoriasis (~2013) Vertigo (~2012) Surgical History Anesthesia History of hip replacement History of lumpectomy (~1989) History of total mastectomy (~2011) No pertinent past surgical history Family History Brother Age: 81 High cholesterol Overweight Mother Hypertension High cholesterol Stroke Father Dementia Grandfather Stroke Grandmother No problems noted. Grandmother Stomach cancer Social History marital status: household members: none Smoking Status: Never smoker alcohol intake: current (1-3 A WEEK ) substance use type: does not use Smoking Status: Never smoker alcohol intake frequency: a few times a week Substance Use Type: does not use Exam Initial Vital Signs Initial Vital Signs: Vital Signs Pulse Rate 59 L 03/25/22 11:29 Pulse Oximetry 99 03/25/22 11:29 GENERAL: Alert pleasant 81-year-old female HEENT: Head atraumatic,EOMI, pupils reactive, face symmetric, moist mucous membranes CARDIOVASCULAR: Regular rate and rhythm without murmurs, rubs or gallops. Pain is reproducible on left chest and left pectoral muscle definitely reproducible and positional RESPIRATORY: Breath sounds equal bilaterally, no wheezes rales or rhonchi. ABDOMEN: Soft, nontender. Normoactive bowel sounds all 4 quadrants. No guarding or rebound. EXTREMITIES: Normal range of motion, no clubbing or edema. Neurovascularly intact NEUROLOGICAL: Alert and oriented x4. SKIN: Warm, dry, no laceration, no petechiae, no rashes or lesions. Scores HEART Score Heart Score history: Slightly Suspicious Heart Score EKG: Normal Heart Score Age: > or = 65 years old Heart Score risk factors: 1-2 risk factors Heart Score troponin: < or = to normal limit Heart Score Total: 3 Course Orders Ordered: ED Orders 03/25/22 11:20 Complete Blood Count AUTO DIFF Stat Comprehensive Metabolic Panel Stat Lipase Stat Magnesium Stat Partial Thromboplastin Time Stat Prothrombin Time INR Stat Troponin & CK Cardiac Panel Stat 03/25/22 11:35 XR chest 1V Stat EKG-12 Lead Stat 03/25/22 12:00 COVID19 -Nasal RAPID/Pre-Proc Stat 03/25/22 13:44 Trop I [Troponin I] Stat 03/25/22 14:00 EKG-12 Lead Stat Discontinued Medications Aspirin (Aspirin 81 Mg Chew Tab) 324 mg PO NOW ONE Stop: 03/25/22 11:36 Last Admin: 03/25/22 12:02 Dose: Not Given Documented By: KAREEM Vital Signs Vital signs: Vital Signs - 8 hr 03/25/22 12:00 03/25/22 12:02 03/25/22 12:02 Pulse Rate 54 L 56 L Respiratory Rate 20 18 Blood Pressure 167/75 H Pulse Oximetry 99 99 03/25/22 12:30 03/25/22 12:30 03/25/22 13:00 Pulse Rate 62 Respiratory Rate 20 Blood Pressure 181/84 H 179/88 H Pulse Oximetry 98 03/25/22 13:00 03/25/22 13:30 03/25/22 13:31 Pulse Rate 50 L 50 L 52 L Respiratory Rate 17 19 20 Blood Pressure Pulse Oximetry 98 97 96 03/25/22 13:31 03/25/22 14:00 03/25/22 14:01 Pulse Rate 51 L Respiratory Rate 20 Blood Pressure 194/80 H 172/75 H Pulse Oximetry 97 03/25/22 14:01 03/25/22 14:30 03/25/22 14:31 Pulse Rate 51 L 52 L Respiratory Rate 22 21 Blood Pressure 179/77 H Pulse Oximetry 97 96 03/25/22 14:31 03/25/22 16:06 03/25/22 15:00 Pulse Rate 52 L 52 L 49 L Respiratory Rate 20 18 Blood Pressure 150/60 H Pulse Oximetry 96 99 96 03/25/22 15:01 03/25/22 15:01 03/25/22 15:30 Pulse Rate 51 L 50 L Respiratory Rate 20 20 Blood Pressure 166/117 H Pulse Oximetry 96 97 03/25/22 15:31 03/25/22 15:31 Pulse Rate 50 L Respiratory Rate 14 Blood Pressure 156/97 H Pulse Oximetry 97 MDM - Chest Pain Lab Data Result diagrams: 03/25/22 11:20 03/25/22 11:20 Labs: Lab Results 03/25/22 03/25/22 03/25/22 Range/Units 11:20 11:20 11:20 WBC 6.9 (4.5-11.0) X10^3/uL RBC 4.17 (4.0-5.2) X10^6/uL Hgb 13.4 (12.0-16.0) g/dL Hct 40.6 (36-46) % MCV 97.5 (80-100) fL MCH 32.3 (26-34) PG MCHC 33.1 (30-36) % RDW 13.9 (11.6-14.8) % Plt Count 257 (150-400) X10^3/uL Neut % (Auto) 69.0 (50-75) % Lymph % (Auto) 21.8 L (25-40) % Lares % (Auto) 7.2 (3-14) % Eos % (Auto) 1.0 L (2-4) % Baso % (Auto) 1.0 (0-2) % Neut # (Auto) 4800 (0763-5238) /uL Lymph # (Auto) 1500 (9150-5293) /uL Lares # (Auto) 500 (0-900) /uL Eos # (Auto) 100 (0-450) /uL Baso # (Auto) 100 (0-100) /uL PT 11.0 (10.1-12.7) SECONDS INR 1.0 (0.9-1.3) APTT 41 H (26-36) SECONDS Sodium 142 (137-145) mmol/L Potassium 3.5 (3.4-5.1) mmol/L Chloride 106 (98-107) mmol/L Carbon Dioxide 26 (22-32) mmol/L BUN 23 H (7-17) mg/dL Creatinine 0.72 (0.52-1.04) mg/dL Estimated GFR > 60 (>60) mL/min BUN/Creatinine Ratio 31.9 H (6-22) Glucose 140 H (80-110) mg/dL Calcium 9.2 (8.4-10.2) mg/dL Magnesium 2.0 (1.6-2.3) mg/dL Total Bilirubin 0.5 (0.2-1.3) mg/dL AST 29 (14-36) IU/L ALT 29 (<35) IU/L Alkaline Phosphatase 66 (38-126) U/L Total Creatine Kinase 56 (30-135) U/L CK-MB (CK-2) TNP CK-MB (CK-2) Rel Index TNP Troponin I < 0.012 (0.01-0.034) ng/mL Total Protein 7.2 (6.3-8.2) g/dL Albumin 4.2 (3.5-5.0) g/dL Globulin 3.0 (1.7-4.1) g/dL Albumin/Globulin Ratio 1.4 (1.0-2.8) Lipase 169 (23-300) U/L SARS-CoV-2 (PCR) (Negative) 03/25/22 03/25/22 Range/Units 12:00 13:44 WBC (4.5-11.0) X10^3/uL RBC (4.0-5.2) X10^6/uL Hgb (12.0-16.0) g/dL Hct (36-46) % MCV (80-100) fL MCH (26-34) PG MCHC (30-36) % RDW (11.6-14.8) % Plt Count (150-400) X10^3/uL Neut % (Auto) (50-75) % Lymph % (Auto) (25-40) % Lares % (Auto) (3-14) % Eos % (Auto) (2-4) % Baso % (Auto) (0-2) % Neut # (Auto) (8518-1045) /uL Lymph # (Auto) (0920-9317) /uL Lares # (Auto) (0-900) /uL Eos # (Auto) (0-450) /uL Baso # (Auto) (0-100) /uL PT (10.1-12.7) SECONDS INR (0.9-1.3) APTT (26-36) SECONDS Sodium (137-145) mmol/L Potassium (3.4-5.1) mmol/L Chloride (98-107) mmol/L Carbon Dioxide (22-32) mmol/L BUN (7-17) mg/dL Creatinine (0.52-1.04) mg/dL Estimated GFR (>60) mL/min BUN/Creatinine Ratio (6-22) Glucose (80-110) mg/dL Calcium (8.4-10.2) mg/dL Magnesium (1.6-2.3) mg/dL Total Bilirubin (0.2-1.3) mg/dL AST (14-36) IU/L ALT (<35) IU/L Alkaline Phosphatase (38-126) U/L Total Creatine Kinase (30-135) U/L CK-MB (CK-2) CK-MB (CK-2) Rel Index Troponin I 0.019 (0.01-0.034) ng/mL Total Protein (6.3-8.2) g/dL Albumin (3.5-5.0) g/dL Globulin (1.7-4.1) g/dL Albumin/Globulin Ratio (1.0-2.8) Lipase (23-300) U/L SARS-CoV-2 (PCR) Negative (Negative) Imaging Data Chest x-ray: Radiologist's Impression: XRay Report Signed Patient: Neeta Doan MR#: [id number] : 1940 Acct:[id number] Age/Sex: 81 / F Date of Service: 03/25/22 Loc: ED Accession Number: [id number] ?? Procedure: XR chest 1V Ordering Provider: Nancy Arnold D.O. PROCEDURE:? XR CHEST 1V ? INDICATIONS:? chest pain ? TECHNIQUE:? One view of the chest was acquired.? ? COMPARISON:? [facility], , XR CHEST 1V, 01/19/2018, 10:31. ? FINDINGS:? ? Surgical changes and devices:? Left axillary clips are seen.? Mediastinal clips are also seen. ? Lungs and pleura:? On this semiupright portable chest examination, no large pneumothorax or large pleural effusions are seen.? No focal infiltrates are seen.? Low lung volumes are noted. This causes a crowded appearance to the lung markings and limits evaluation.? ? Mediastinum:? Mediastinal contours appear normal.? Heart size is normal.? Calcification ? Bones and chest wall:? No suspicious bony lesions.? Age-appropriate bony degenerative changes are seen. ? Overlying soft tissues appear unremarkable.? IMPRESSION:? ? No acute cardiopulmonary process is seen.? ? Postoperative and degenerative changes are seen.? ? ? Dictated by: Germain Syed M.D. on 03/25/2022 at 11:07 ? ? Approved by: Germain Syed M.D. on 03/25/2022 at 11:09 ? ECG Data Interpretation: Normal sinus rhythm rate 54 GA interval 160 QRS [address] changes no T-wave inversions similar to previous EKG 2. Sinus rhythm rate 53 similar to prior MDM Narrative Medical decision making narrative: Patient is a 81-year-old female history of hypertension hyperlipidemia breast cancer presenting today with chest discomfort ongoing for a week. It is definitely worse with stretching out her arm and pain to palpation. She does lift weights. She has 2- troponins the 1st is less than 0.012 the 2nd is 0.019 so slightly elevated but not considered clinic least significant. She is no EKG changes. I think probable muscle strain and costochondritis rather than acute coronary syndrome. He was complaining of some tingling down her right arm I think probably related to neuropathy and nerve rather than stroke. She does not have that discomfort now Differential diagnosis includes acute coronary disease, muscle strain, costochondritis, pneumothorax, dissection, pulmonary embolism Discharge Plan Departure Patient Disposition: Home Clinical Impression: Muscle strain Instructions: JUAN C Salgado for Muscle Strain Activity Restrictions/Additional Instructions: *You have been diagnosed with probable chest wall muscle strain *What to do: At this time I recommend you stop lifting weights until the pain has improved. Rest, try icing or heat whichever makes it feel better *Continue to take medications as directed May take Advil as directed Tylenol 650 mg every 4-6 hours if needed for [id number]-[id number] pain *Follow up with your primary care provider in 2-3 days or call [phone] *Return to ER if you should have increasing pain shortness of breath, weakness numbness tingling or any new, worsening or concerning symptoms Prescriptions: No Action atorvastatin 20 mg tablet 20 mg PO DAILY Qty: 90 3RF levothyroxine [Synthroid] 112 mcg tablet 112 mcg PO QDAY Qty: 90 3RF lisinopril 10 mg tablet 10 mg PO QDAY Qty: 90 3RF sertraline [Zoloft] 50 mg tablet 50 mg PO QDAY Qty: 90 3RF PreserVision AREDS-2 250-90-40-1 mg tablet,chewable 1 tab PO QAM AND QPM CHOLECALCIFEROL (VITAMIN D3) (VITAMIN D3) 1,000 iu PO QDAY Qty: 0 Referrals: Cyril Griggs MD [Primary Care Provider] - Visit Report Forms: Patient Portal/API
[2022-03-25 14:13] LABS: Troponin I 0.019 ng/mL (0.01-0.034)
== END 2022-03-25 16:07 | disposition home or self-care (01) ==
PROVIDERS: Emergency Provider Emergency Medicine; PCP Family Medicine
DX: S29.011A Strain of muscle and tendon of front wall of thorax, initial encounter (principal); Z79.899 Other long term (current) drug therapy; Z85.3 Personal history of malignant neoplasm of breast; Z20.822 Contact with and (suspected) exposure to COVID-19
CPT/HCPCS: 36415; 71045; 80053; 82550; 83690; 83735; 84484; 85025; 85610; 85730; 87635; 93005; 99283; 99284; C9803

== ENCOUNTER 2022-05-09 17:31 | Emergency (ER) | payer MEDICARE, OTHER, SELFPAY ==
[2018-01-19 21:35] VITALS: BMI 23.2
[2022-05-09] VITALS (7 sets, daily range): BP systolic 161–185; BP diastolic 74–85; PULSE 57–70; RESP 16–19; TEMP 36.6; O2SAT 97–98; BMI 24.0
--- NOTE | 2022-05-09 18:06 | ED.ARRPALP ---
HPI - Arrhythmia/Palpitations General Chief Complaint: Arrhythmia/Palpitations Stated Complaint: Irregular heartbeat Time Seen by Provider: 05/09/22 18:01 Source: patient Mode of arrival: Ambulatory History of Present Illness HPI narrative: Patient is a 81-year-old female history of hypothyroid hypertension hyperlipidemia presenting today with her palpitations. She reports that her long-time boyfriend was just admitted to the hospital he got released today he is with his daughter they live separately and today she was just feeling palpitations. She denies any dizziness lightheadedness no chest pain no numbness tingling or weakness abdominal pain nausea vomiting. Now that she is been in the ED she says that she feels better. She feels like she just been overwhelmed and stressed. This has been happening to her a little bit. She is been monitor her EKG shows sinus rhythm. Related Data Home Medications Medication Instructions Recorded Confirmed multivitamin (Multiple Vitamins 1 tab PO DAILY 04/02/22 05/09/22 tablet) vit C 250 mg-E 90 mg-zinc 40 1 tab PO QAM 04/02/22 05/09/22 mg-copper 1 lk-wajboa-qjptjq chew tablet (PreserVision AREDS-2) Previous Rx's Medication Instructions Recorded atorvastatin 20 mg tablet 20 mg PO DAILY #90 tabs 06/19/21 levothyroxine 112 mcg tablet 112 mcg PO QDAY #90 tabs 06/19/21 (Synthroid) lisinopril 10 mg tablet 10 mg PO QDAY #90 tabs 06/19/21 sertraline 50 mg tablet (Zoloft) 50 mg PO QDAY #90 tabs 06/19/21 Allergies Allergy/AdvReac Type Severity Reaction Status Date / Time Beta-Blockers Allergy Mild UNKNOWN Verified 05/09/22 17:45 (Beta-Adrenergic Bloc erythromycin base Allergy Mild N/V Verified 05/09/22 17:45 [ERYTHROMYCIN BASE] sulindac [From CLINORIL] Allergy Mild RASH Verified 05/09/22 17:45 Review of Systems Review of Systems ROS Unobtainable: All systems reviewed & are unremarkable except as noted in HPI and below Patient History Medical History Abnormal Pap smear of cervix Breast cancer Depression GERD (gastroesophageal reflux disease) Hearing deficit Hypertension Hypertension Hypothyroid Hypothyroidism (~1979) Malignant neoplasm of female breast Osteopenia (~2014) Psoriasis (~2013) Vertigo (~2012) Surgical History Anesthesia History of hip replacement History of lumpectomy (~1989) History of total mastectomy (~2011) No pertinent past surgical history Family History Brother Age: 82 High cholesterol Overweight Mother Hypertension High cholesterol Stroke Father Dementia Grandfather Stroke Grandmother No problems noted. Grandmother Stomach cancer Social History marital status: household members: none Smoking Status: Never smoker alcohol intake: current (1-3 A WEEK ) substance use type: does not use Smoking Status: Never smoker alcohol intake frequency: a few times a week Substance Use Type: does not use Exam Initial Vital Signs Initial Vital Signs: Vital Signs Pulse Rate 66 05/09/22 17:41 Respiratory Rate 19 05/09/22 17:41 Pulse Oximetry 98 05/09/22 17:41 GENERAL: Alert pleasant 81-year-old female and in no acute distress. HEENT: Head atraumatic,EOMI, pupils reactive, face symmetric, moist mucous membranes CARDIOVASCULAR: Regular rate and rhythm without murmurs, rubs or gallops. RESPIRATORY: Breath sounds equal bilaterally, no wheezes rales or rhonchi. ABDOMEN: Soft, nontender. Normoactive bowel sounds all 4 quadrants. No guarding or rebound. EXTREMITIES: Normal range of motion, no clubbing or edema. Neurovascularly intact NEUROLOGICAL: Alert and oriented x4. SKIN: Warm, dry, no laceration, no petechiae, no rashes or lesions. Course Orders Ordered: ED Orders 05/09/22 17:39 EKG-12 Lead Stat Vital Signs Vital signs: Vital Signs - 8 hr 05/09/22 17:42 05/09/22 17:41 05/09/22 17:42 Temperature 98 F Pulse Rate 70 66 67 Respiratory Rate 17 19 Blood Pressure 185/85 H Pulse Oximetry 98 98 98 Oxygen Delivery Method Room Air 05/09/22 17:42 05/09/22 18:00 05/09/22 18:00 Temperature Pulse Rate 61 Respiratory Rate 16 Blood Pressure 185/85 H 183/79 H Pulse Oximetry 97 Oxygen Delivery Method 05/09/22 18:30 05/09/22 18:31 05/09/22 18:32 Temperature Pulse Rate 64 66 62 Respiratory Rate Blood Pressure Pulse Oximetry 98 98 97 Oxygen Delivery Method 05/09/22 18:32 05/09/22 18:50 05/09/22 18:50 Temperature Pulse Rate 57 L Respiratory Rate Blood Pressure 167/77 H 161/74 H Pulse Oximetry 98 Oxygen Delivery Method MDM - Arrhythmia/Palpitations ECG Data Interpretation: Normal sinus rhythm rate 61 MT interval 154 QRS [address] changes like she has some PACs similar to prior MDM Narrative Medical decision making narrative: Patient 81-year-old female history of hypertension hypothyroid hyperlipidemia presenting today with palpitations. She is anxious on exam heart rate is within normal limits, no PVCs or PACs noted on the monitor. Blood pressure mildly high but actually comes down easily. We discussed doing blood work however she really is feeling a lot better this does seem to be a stress reaction she is having absolutely no chest pain syncope or near syncopal episodes. She does have some risk factors of hypertension hyperlipidemia however at this time she would like to go home I think that this is reasonable. I have no concerning symptoms for acute coronary syndrome. Possible arrhythmia recommend Holter monitor if it continues. However based on her history and talking to her I do have a high suspicion that this is probably anxiety-related MDM * differential diagnosis includes but not limited to: Arrhythmia acute coronary syndrome, anxiety * Prior records reviewed: Walk-in clinic note reviewed * My lab interpretation: None * My imaging interpretation: None * Clinical Decision Rules/Scores evaluated: [ ] * Independent discussions with: None * Social Considerations: None * Shared Decision Making: With patient *Disposition: see below, along with detailed discharge instructions that have been reviewed with patient as well as indications for ED re-evaluation and additional outpatient follow up Discharge Plan Departure Patient Disposition: Home Clinical Impression: Palpitations, Anxiety, Hyperlipidemia Instructions: DI for Anxiety -- Adult, DI for Palpitations Activity Restrictions/Additional Instructions: *You have been diagnosed with palpitations anxiety *What to do: At this time you were having some palpitations might be related to some anxiety and stress. If this continues any you may require a Holter monitor please see her PCP about this. If you should have persistent symptoms please return to the emergency department *Continue to take medications as directed *Follow up with your primary care provider in 2-3 days or call [phone] *Return to ER if you should have palpitations dizziness lightheadedness passing out or any new, worsening or concerning symptoms Prescriptions: No Action atorvastatin 20 mg tablet 20 mg PO DAILY Qty: 90 3RF levothyroxine [Synthroid] 112 mcg tablet 112 mcg PO QDAY Qty: 90 3RF lisinopril 10 mg tablet 10 mg PO QDAY Qty: 90 3RF sertraline [Zoloft] 50 mg tablet 50 mg PO QDAY Qty: 90 3RF PreserVision AREDS-2 250-90-40-1 mg tablet,chewable 1 tab PO QAM multivitamin [Multiple Vitamins] Tablet 1 tab PO DAILY Referrals: Cyril Griggs MD [Primary Care Provider] - Stand Alone Forms: Patient Portal/API
== END 2022-05-09 18:55 | disposition home or self-care (01) ==
PROVIDERS: Emergency Provider Emergency Medicine; PCP Family Medicine
DX: R00.2 Palpitations (principal); F41.9 Anxiety disorder, unspecified; E78.5 Hyperlipidemia, unspecified
CPT/HCPCS: 93005; 99281; 99283

== ENCOUNTER → 2022-06-25 07:20 | Outpatient (CLI) | payer MEDICARE, OTHER, SELFPAY ==
[2018-01-19 21:35] VITALS: BMI 23.2
[2022-06-25 09:08] LABS: Cholesterol 148 mg/dL (140-199); HDL Cholesterol 60 mg/dL (40-60); LDL Cholesterol Calculated 70 mg/dL (<100); Triglycerides 88 mg/dL (35-150)
[2022-06-25 10:36] LABS: TSH w/ Reflex to FT4 0.64 uIU/mL (0.47-4.68)
== END ==
PROVIDERS: PCP Family Medicine; Referring Provider Family Medicine; Visit Provider Family Medicine
DX: E03.9 Hypothyroidism, unspecified (principal); E78.5 Hyperlipidemia, unspecified
CPT/HCPCS: 36415; 80061; 84443

== ENCOUNTER → 2022-06-27 09:48 | Outpatient (CLI) | payer MEDICARE, OTHER, SELFPAY ==
[2018-01-19 21:35] VITALS: BMI 23.2
--- NOTE | 2022-06-27 09:50 | DI.MG.S_ITS ---
UNILATERAL RIGHT DIGITAL SCREENING MAMMOGRAM 3D/2D WITH CAD POST MASTECTOMY: 06/27/2022 CLINICAL: Routine screening. Personal history of left breast cancer. Comparison is made to exams dated: 06/26/2021 mammogram, 06/06/2020 mammogram, and 06/01/2019 mammogram - outside facility. There are scattered areas of fibroglandular density in the right breast (category b / 25%-50% glandular tissue). Current study was also evaluated with a Computer Aided Detection (CAD) system. There is a benign calcification in the right breast. There also are benign post operative findings in the right breast. No significant masses, calcifications, or other findings are seen in the breast. There has been no significant interval change. IMPRESSION: BENIGN There is no mammographic evidence of malignancy. A 1 year screening mammogram is recommended. This exam was interpreted at Station ID: [id number]. NOTE: For mammograms, a report in lay terms will be sent to the patient. Approximately 15% of breast malignancies will not be visualized mammographically. In the management of a palpable breast mass, a negative mammogram must not discourage biopsy of a clinically suspicious lesion. Electronically Signed By: Guillermina rubin/bryant:06/27/2022 13:09:16 letter sent: Normal Exam ACR BI-RADS Category 2: Benign Finding(s) 3342F
== END ==
PROVIDERS: PCP Family Medicine; Referring Provider Family Medicine; Visit Provider Family Medicine
DX: Z12.31 Encounter for screening mammogram for malignant neoplasm of breast; Z85.3 Personal history of malignant neoplasm of breast
CPT/HCPCS: 77063; 77067

== ENCOUNTER → 2022-10-17 07:04 | Outpatient (CLI) | payer MEDICARE, OTHER, SELFPAY ==
[2018-01-19 21:35] VITALS: BMI 23.2
== END ==
PROVIDERS: PCP Family Medicine; Visit Provider Nurse Practitioner Family
DX: N39.0 Urinary tract infection, site not specified (principal); R30.0 Dysuria
CPT/HCPCS: 87086; 87210

== ENCOUNTER → 2022-10-30 11:08 | Outpatient (CLI) | payer MEDICARE, OTHER, SELFPAY ==
[2018-01-19 21:35] VITALS: BMI 23.2
--- NOTE | 2022-10-30 11:11 | DI.RAD.S_ITS ---
PROCEDURE: XR HIP W PEL IF DONE LIBERTY MIN 4V INDICATIONS: Right hip pain - suspect Osteoarthritis TECHNIQUE: AP pelvis with lateral view(s) of the bilateral hip(s). COMPARISON: None. FINDINGS: Bones: No fractures or dislocations. Pelvic ring appears intact. No suspicious bony lesions. Moderate bilateral degenerative hip joint space narrowing. No erosions. Soft tissues: The visualized bowel gas pattern is normal. Calcifications are noted overlying the mid pelvis likely calcified uterine fibroid. IMPRESSION: Moderate bilateral hip arthritic change. Dictated by: Yuni Medina M.D. on 10/30/2022 at 15:49 Approved by: Yuni Medina M.D. on 10/30/2022 at 15:49
== END ==
PROVIDERS: PCP Family Medicine; Referring Provider Physician Assistant; Visit Provider Physician Assistant
DX: M16.11 Unilateral primary osteoarthritis, right hip (principal); M25.551 Pain in right hip; I10 Essential (primary) hypertension
CPT/HCPCS: 73522; 82043; 82570

== ENCOUNTER → 2022-10-30 11:30 | Outpatient (CLI) | payer MEDICARE, OTHER, SELFPAY ==
[2018-01-19 21:35] VITALS: BMI 23.2
[2022-10-30 12:28] LABS: Creatinine Urine Random 107.5 mg/dL
[2022-10-30 12:32] LABS: Microalbumi Creatinin Ratio Ur 6.5 ug/mg CR (<30); Microalbumin Urine Random 0.7 mg/dL (0-1.6)
== END ==
PROVIDERS: PCP Family Medicine; Visit Provider Physician Assistant
DX: I10 Essential (primary) hypertension (principal)
CPT/HCPCS: 82043; 82570

== ENCOUNTER → 2023-02-14 16:52 | Outpatient (CLI) | payer MEDICARE, OTHER, SELFPAY ==
[2018-01-19 21:35] VITALS: BMI 23.2
--- NOTE | 2023-02-14 16:56 | DI.MRI.S_ITS ---
PROCEDURE: MR HIP RT WO CON INDICATIONS: rt hip pain TECHNIQUE: Noncontrast coronal T1 spin echo and STIR through the bony pelvis. Coronal and axial T2 fast spin echo with fat saturation, sagittal T1 spin echo, and oblique axial T2 fast spin echo with fat saturation through the hip. COMPARISON: None. FINDINGS: Image quality: Excellent. Bones and joints: Pyrk-cj-bpqzjevm bilateral hip joint osteoarthritic changes are seen with superior joint space narrowing, subchondral sclerosis and small lateral marginal osteophyte formation. There is no marrow edema. No intraosseous lesions or fractures. No avascular necrosis of the femoral heads. Degenerative disc disease in visualized lower lumbar spine is seen. Tendons and ligaments: Distal right gluteus medius and minimus tendinosis at their insertions on greater trochanter is seen. The nearby proximal iliotibial band also appears intact. The iliopsoas tendon appears intact, without adjacent bursal fluid collections or evidence for impingement syndrome. Tendinosis involving origins of hamstring tendons at ischial tuberosity is seen. The straight and reflected heads of the rectus femoris muscle origin appear intact, as well as the conjoint tendon. The ligamentum teres appears intact where visualized. Labrum and cartilage: Diffuse thinning of articulating cartilages over right femoral head is seen with subtle T2 hyperintense signal and fraying of superior anterior right hip labrum at 12 to 1 o'clock position suggestive of subtle superior anterior right hip labral tear. The alpha angle of the femur is within normal limits at less than 55 degrees. Soft tissues: Visualized muscles demonstrate normal bulk and internal signal. Quadratus femoris muscle demonstrates no internal edema to suggest ischiofemoral impingement. The proximal sciatic neurovascular bundle appears normal adjacent to the hamstring tendons. No free pelvic fluid. Bladder wall thickness is normal. Genitourinary structures and bowel loops appear normal where visualized. IMPRESSION: 1. Krep-aw-mrpueeim bilateral hip joint osteoarthritis. No acute fracture or dislocation. No evidence of avascular necrosis of femoral head. 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 2. Distal right gluteus medius and minimus tendinosis. Tendinosis involving origins of hamstring tendons at ischial tuberosity. No other muscle or tendon signal abnormalities are seen. 3. Finding is concerning for subtle superior anterior labral tear at 12 to 1 o'clock position. Dictated by: Wilfrid Huang M.D. on 02/17/2023 at 8:33 Approved by: Wilfrid Huang M.D. on 02/17/2023 at 8:37
== END ==
PROVIDERS: PCP Family Medicine; Referring Provider Orthopaedic Surgery; Visit Provider Orthopaedic Surgery
DX: M16.0 Bilateral primary osteoarthritis of hip (principal); M51.36 Other intervertebral disc degeneration, lumbar region; M25.551 Pain in right hip; M67.959 Unspecified disorder of synovium and tendon, unspecified thigh
CPT/HCPCS: 73721

== ENCOUNTER → 2023-05-19 07:58 | Outpatient (CLI) | payer MEDICARE, OTHER, SELFPAY ==
[2018-01-19 21:35] VITALS: BMI 23.2
== END ==
PROVIDERS: PCP Family Medicine; Visit Provider Physician Assistant Surgical
DX: R35.0 Frequency of micturition (principal)
CPT/HCPCS: 87086

== ENCOUNTER → 2023-07-01 13:09 | Outpatient (CLI) | payer MEDICARE, OTHER, SELFPAY ==
[2018-01-19 21:35] VITALS: BMI 23.2
--- NOTE | 2023-07-01 13:10 | DI.MG.S_ITS ---
UNILATERAL RIGHT DIGITAL SCREENING MAMMOGRAM 3D/2D WITH CAD: 07/01/2023 CLINICAL: Routine. Breast cancer. Comparison is made to exams dated: 06/27/2022 mammogram - [facility], 06/26/2021 mammogram, and 06/06/2020 mammogram - outside facility. There are scattered areas of fibroglandular density in the right breast (category b / 25%-50% glandular tissue). Current study was also evaluated with a Computer Aided Detection (CAD) system. There is a benign calcification in the right breast. There also are benign post operative findings in the right breast. No significant masses, calcifications, or other findings are seen in the breast. There has been no significant interval change. IMPRESSION: BENIGN There is no mammographic evidence of malignancy. A 1 year screening mammogram is recommended. This exam was interpreted at Station ID: [id number]. NOTE: For mammograms, a report in lay terms will be sent to the patient. Approximately 15% of breast malignancies will not be visualized mammographically. In the management of a palpable breast mass, a negative mammogram must not discourage biopsy of a clinically suspicious lesion. Electronically Signed By: Adarsh adler/bryant:07/01/2023 15:55:24 letter sent: Normal Exam ACR BI-RADS Category 2: Benign Finding(s) 3342F
== END ==
PROVIDERS: PCP Family Medicine; Referring Provider Physician Assistant; Visit Provider Physician Assistant
DX: Z12.31 Encounter for screening mammogram for malignant neoplasm of breast (principal); Z85.3 Personal history of malignant neoplasm of breast; R92.321 Mammographic fibroglandular density, right breast
CPT/HCPCS: 77063; 77067

== ENCOUNTER → 2023-07-05 13:40 | Outpatient (CLI) | payer MEDICARE, OTHER, SELFPAY ==
[2018-01-19 21:35] VITALS: BMI 23.2
[2023-07-05 14:25] LABS: Influenza A - CEPHEID Flu A NEGATIVE (NEGATIVE); Influenza B - CEPHEID Flu B NEGATIVE (NEGATIVE); Respiratory Syncytial Virus Negative (Negative)
[2023-07-05 14:26] LABS: COVID-19 CEPHEID 4-PLEX PCR Negative (Negative)
== END ==
PROVIDERS: PCP Family Medicine; Visit Provider Physician Assistant Surgical
DX: R05.9 Cough, unspecified (principal)
CPT/HCPCS: 0241U

== ENCOUNTER → 2023-07-09 15:26 | Outpatient (CLI) | payer MEDICARE, OTHER, SELFPAY ==
[2018-01-19 21:35] VITALS: BMI 23.2
--- NOTE | 2023-07-09 15:28 | DI.RAD.S_ITS ---
PROCEDURE: XR CHEST 2V INDICATIONS: cough x 1 mo TECHNIQUE: 2 views of the chest were acquired. COMPARISON: [facility], , XR CHEST 1V, 03/25/2022, 11:49. FINDINGS: Surgical changes and devices: None. Lungs and pleura: Lungs are clear. No pleural effusions or pneumothorax. Mediastinum: Mediastinal contours are normal. Heart size is enlarged. Bones and chest wall: No suspicious bony abnormalities. Soft tissues appear unremarkable. IMPRESSION: No acute pulmonary process. Dictated by: Yuni Medina M.D. on 07/09/2023 at 16:47 Approved by: Yuni Medina M.D. on 07/09/2023 at 16:48
== END ==
PROVIDERS: PCP Family Medicine; Referring Provider Physician Assistant; Visit Provider Physician Assistant
DX: J06.9 Acute upper respiratory infection, unspecified (principal)
CPT/HCPCS: 71046

== ENCOUNTER → 2023-07-29 07:03 | Outpatient (CLI) | payer MEDICARE, OTHER, SELFPAY ==
[2018-01-19 21:35] VITALS: BMI 23.2
[2023-07-29 08:08] LABS: Add Manual Diff / Slide Review NO; Basophils Absolute Auto 100 /uL (0-100); Eosinophils Absolute Auto 300 /uL (0-450); Hemoglobin 12.7 g/dL (12.0-16.0); Lymphocytes Absolute Auto 1900 /uL (1100-4500); Lymphocytes Percent Auto 31.4 % (25-40); Mean Corpuscular HGB Conc 33.6 % (30-36); Mean Corpuscular Hemoglobin 32.6 PG (26-34); Monocytes Absolute Auto 700 /uL (0-900); Monocytes Percent Auto 11.5 % (3-14); Neutrophils Absolute Auto 3100 /uL (1500-7000); Neutrophils Percent Auto 51.1 % (50-75); Platelet Count 238 X10^3/uL (150-400); Red Blood Cell Count 3.92 X10^6/uL (4.0-5.2); Red Cell Distribution Width 13.5 % (11.6-14.8); White Blood Cell Count 6.1 X10^3/uL (4.5-11.0)
[2023-07-29 09:07] LABS: TSH w/ Reflex to FT4 0.67 uIU/mL (0.47-4.68)
[2023-07-29 09:25] LABS: Alanine Aminotransferase 23 IU/L (<35); Albumin Globulin Ratio 1.6 (1.0-2.8); Alkaline Phosphatase 61 U/L (38-126); Aspartate Aminotransferase 24 IU/L (14-36); BUN Creatinine Ratio 30.7 (6-22); Bilirubin Total 0.5 mg/dL (0.2-1.3); Blood Urea Nitrogen 23 mg/dL (7-17); Calcium 9.3 mg/dL (8.4-10.2); Carbon Dioxide 29 mmol/L (22-32); Chloride 108 mmol/L (98-107); Cholesterol 141 mg/dL (140-199); Estimated Glomerular Filt Rate > 60 mL/min (>60); Globulin 2.5 g/dL (1.7-4.1); Glucose 109 mg/dL (80-110); HDL Cholesterol 54 mg/dL (40-60); HEMOLYSIS < 15 (0-50); LDL Cholesterol Calculated 71 mg/dL (<100); Potassium 4.2 mmol/L (3.4-5.1); Sodium 139 mmol/L (137-145); Total Protein 6.5 g/dL (6.3-8.2); Triglycerides 80 mg/dL (35-150)
[2023-07-29 16:13] LABS: Microalbumin Urine Random 1.4 mg/dL (0-1.6)
[2023-07-29 16:21] LABS: Creatinine Urine Random 153.7 mg/dL; Microalbumi Creatinin Ratio Ur 9.1 ug/mg CR (<30)
== END ==
PROVIDERS: PCP Family Medicine; Referring Provider Physician Assistant; Visit Provider Physician Assistant
DX: I10 Essential (primary) hypertension (principal); E78.5 Hyperlipidemia, unspecified; E03.9 Hypothyroidism, unspecified
CPT/HCPCS: 36415; 80053; 80061; 82043; 82570; 84443; 85025

== ENCOUNTER → 2023-09-02 10:15 | Outpatient (CLI) | payer MEDICARE, OTHER, SELFPAY ==
[2018-01-19 21:35] VITALS: BMI 23.2
--- NOTE | 2023-09-02 10:16 | DI.RAD.S_ITS ---
PROCEDURE: XR DEXA AXIAL SKELETON INDICATIONS: osteopneia COMPARISON: [facility], CR, XR DEXA AXIAL SKELETON, 10/14/2017, 10:55. FINDINGS: Lumbar Spine: Bone mineral density 1.045 g/cm2, T score 0.2, normal. Left Hip: Bone mineral density 0.807 g/cm2, T score -1.1, osteopenia. Left Femoral Neck: Bone mineral density 0.640 g/cm2, T score -1.9, osteopenia. Right Hip: Bone mineral density 0.772 g/cm2, T score -1.4, osteopenia. Right Femoral Neck: Bone mineral density 0.624 g/cm2, T score -2.0, osteopenia. Fracture Risk Calculation (when applicable): 10-year fracture risk of a major osteoporotic fracture 21-22% and of a hip fracture 5.6-6.0%. (T score greater or equal to -1.0 to: NORMAL) (T score from -1.1 to -2.4: OSTEOPENIA) (T score less than or equal to -2.5: OSTEOPOROSIS) IMPRESSION: 1. Based on WHO criteria, the patient has osteopenia and increased risk for osteoporotic fractures. 2. Interval change from the last exam cannot be assessed because of different scan type and analysis methodology. Follow-up guidelines as follows: Osteoporosis: Consider a repeat DEXA and Vertebral Fracture Assessment (VFA) exam in 2 years or sooner if medically necessary, to reassess this patient's status. Osteopenia: Consider a repeat DEXA in 2-3 years to reassess this patient's status, or if there is a new clinical indication. Normal: Consider a repeat DEXA in 5 years or sooner, or if there is a new clinical indication. All treatment decisions require clinical judgment and consideration of individual patient factors, including patient preferences, comorbidities, previous drug use, risk factors not captured in the FRAX model (e.g., frailty, falls, vitamin D deficiency, increased bone turnover, interval significant decline in bone density ) and possible under- or over-estimation of fracture risk by FRAX. In addition, the NOF Guide recommends that FDA-approved medical therapies be considered in postmenopausal women and men age >= 50 years with a: * Hip or vertebral (clinical or morphometric) fracture * T-score of <=-2.5 at the spine or hip * Ten-year fracture probability by FRAX of >= 3% for hip fracture or >=20% for major osteoporotic fracture. People with diagnosed cases of osteoporosis or at high risk for fracture should have regular bone mineral density tests. For patients eligible for Medicare, routine testing is allowed once every 2 years. The testing frequency can be increased to one year for patients who have rapidly progressing disease, those who are receiving or discontinuing medical therapy to restore bone mass, or have additional risk factors. Dictated by: Ang Lester M.D. on 09/02/2023 at 11:07 Approved by: Ang Lester M.D. on 09/02/2023 at 11:10
== END ==
PROVIDERS: PCP Family Medicine; Referring Provider Family Medicine; Visit Provider Family Medicine
DX: M81.0 Age-related osteoporosis without current pathological fracture (principal)
CPT/HCPCS: 77080

== ENCOUNTER 2023-10-07 09:47 | Day surgery (SDC) | payer MEDICARE, OTHER, SELFPAY ==
[2018-01-19 21:35] VITALS: BMI 23.2
[2023-10-07] VITALS (7 sets, daily range): BP systolic 100–168; BP diastolic 32–77; PULSE 47–84; RESP 11–18; TEMP 36.2–36.3; O2SAT 92–98
[2023-10-07] MEDS: LACTATED RINGERS 1,000 ML 42 ML IV (10:25)
--- NOTE | 2023-10-07 10:56 | P.HP_ITS ---
History of Present Illness History of Present Illness Date Patient Seen: 10/07/23 Time Patient Seen: 10:56 Chief complaint: Colonoscopy Narrative: 83-year-old woman here for screening colonoscopy. Personal history of colonic polyps. Last colonoscopy 2017. No abdominal concerns today. No family history of colon cancer in first-degree relatives. [facility] Medical History Abnormal Pap smear of cervix Breast cancer Depression GERD (gastroesophageal reflux disease) Hearing deficit Hypertension Hypertension Hypothyroid Hypothyroidism (~1979) Malignant neoplasm of female breast Osteopenia (~2014) Psoriasis (~2013) Vertigo (~2012) Surgical History Anesthesia History of hip replacement History of lumpectomy (~1989) History of total mastectomy (~2011) No pertinent past surgical history Family History Brother Age: 83 High cholesterol Overweight Mother Hypertension High cholesterol Stroke Father Dementia Grandfather Stroke Grandmother No problems noted. Grandmother Stomach cancer Social History marital status: household members: none Smoking Status: Never smoker alcohol intake: current substance use type: does not use Meds Home Medications and Allergies Home Medications Medication Instructions Recorded Confirmed Type estradiol 0.01% (0.1 mg/gram) 0.25 appful vaginal DAILY PRN 11/22/22 10/07/23 Rx vaginal cream atrophic vaginitis #42.5 grams lisinopril 10 mg tablet See Rx Instructions .Route 12/24/22 10/07/23 Rx .COMPLEX #90 tabs atorvastatin 20 mg tablet 20 mg PO DAILY #90 tabs 06/10/23 10/07/23 Rx levothyroxine 112 mcg tablet 112 mcg PO QDAY #90 tabs 06/10/23 10/07/23 Rx (Synthroid) sertraline 50 mg tablet (Zoloft) 50 mg PO QDAY #90 tabs 06/10/23 10/07/23 Rx triamcinolone acetonide 0.1 % 1 applic topical DAILY #30 grams 06/10/23 10/07/23 Rx topical ointment Allergies Allergy/AdvReac Type Severity Reaction Status Date / Time Beta-Blockers Allergy Mild UNKNOWN Verified 10/07/23 10:05 (Beta-Adrenergic Bloc erythromycin base Allergy Mild N/V Verified 10/07/23 10:05 [ERYTHROMYCIN BASE] sulindac [From CLINORIL] Allergy Mild RASH Verified 10/07/23 10:05 Exam Vital Signs (past 8 hours): - 10/07/23 10:17 Temperature 97.2 F L Pulse Rate 84 Respiratory Rate 18 Blood Pressure 168/77 H Pulse Oximetry 96 Oxygen Delivery Method Room Air Oxygen Delivery Method Room Air Narrative Exam Narrative: General adult woman alert oriented no acute distress Chest nonlabored respiration Extremities warm well perfused Assessment & Plan Assessment & Plan narrative: The patient requires colorectal screening and colonoscopy is recommended. Technical details were discussed. Risks, benefits, alternatives explained. Risks including but not limited to myocardial infarction, aspiration, bleeding, pain, missed lesion, incomplete examination, need for further radiographic studies, intestinal injury, and need for major abdominal surgery were discussed. All questions were answered to their satisfaction, and they are in agreement with this plan. Time-Based Coding :: [TOTAL MINUTES] spent with patient and on the chart (including review of chart, obtaining history, exam, reviewing outside data, placing orders, documenting exam and treatment plan, and counseling patient) on [DATE].
--- NOTE | 2023-10-07 11:30 | P.OP.COLON_ITS ---
Operative Date/Time/Diagnoses Date of procedure: 10/07/23 Time of procedure: 11:30 Pre-op diagnosis: Colorectal screening Procedure & Clinicians Study performed: Screening colonoscopy Same procedure as scheduled: Yes Indications: Colorectal screening Surgeon: Ender Motta Procedure Notes Procedure in detail: The history and physical was performed/updated and the patient is ASA class is 2. The procedure was discussed in detail with the patient. Potential risks co mplications including infection, bleeding, missed diagnosis, perforation, need for surgery, and were explained. Their questions were answered and informed consent was obtained. Patient was brought to the procedure room and placed standard monitoring equipment. The patient's vital signs were monitored continuously throughout the entire procedure. Prior to starting time-out was performed. The patient was placed in the left lateral recumbent position. Procedural sedation was administered by anesthesia. Examination began with a thorough inspection of the perianal area there was no evidence of fissures, fistulae, external hemorrhoids or cutaneous malignancy. The colonoscopy scope was then placed into the anal canal and was advanced to the cecum, which was identified by the ileocecal valve, the appendiceal orifice and the confluence of the taenia. The scope was then slowly withdrawn examining colon thoroughly in all directions, irrigating it of any residual stool. The scope was retroflexed within the rectum The patient tolerated the procedure well. They will be discharged once criteria are met. The prep was of good/excellent quality. The withdrawl time was 6 minutes. FINDINGS * Normal healthy colonic mucosa without masses polyps or inflammation * Mild diverticulosis of descending colon. Specimen(s): none sent Impression: Normal colonoscopy Post-procedure Recommendations: High fiber diet Plan for aftercare: No further screening colonoscopy necessary Disposition: same day surgery
== END 2023-10-07 12:10 | disposition home or self-care (01) ==
PROVIDERS: PCP Family Medicine; Referring Provider Surgery; Visit Provider Surgery
PROC: 0DJD8ZZ Inspection of Lower Intestinal Tract, Via Natural or Artificial Opening Endoscopic (ICD-10-PCS; CPT 45378; principal; 2023-10-07 10:45)
DX: Z12.11 Encounter for screening for malignant neoplasm of colon (principal); K57.30 Diverticulosis of large intestine without perforation or abscess without bleeding
CPT/HCPCS: G0121; J2704

== ENCOUNTER 2024-02-17 08:31 | Emergency (ER) | payer MEDICARE, OTHER, SELFPAY ==
[2018-01-19 21:35] VITALS: BMI 23.2
[2024-02-17] VITALS (12 sets, daily range): BP systolic 154–179; BP diastolic 69–84; PULSE 54–113; RESP 18–20; TEMP 36.4; O2SAT 96–97; BMI 24.4
--- NOTE | 2024-02-17 08:41 | DI.RAD.S_ITS ---
PROCEDURE: XR CHEST 1V INDICATIONS: chest pain TECHNIQUE: One view of the chest was acquired. COMPARISON: None. FINDINGS: Surgical changes and devices: Surgical clips project over the left axilla and mediastinum. Lungs and pleura: Lungs are clear. No pleural effusions or pneumothorax. Mediastinum: Mediastinal contours appear normal. Heart size is normal. Bones and chest wall: No suspicious bony lesions. Overlying soft tissues appear unremarkable. IMPRESSION: No acute cardiopulmonary abnormality is seen. Dictated by: Ronny Hays M.D. on 02/17/2024 at 9:19 Approved by: Ronny Hays M.D. on 02/17/2024 at 9:20
--- NOTE | 2024-02-17 08:49 | EKG_ITS ---
[address] [address] Test Date: 2024-02-17 Pat Name: Neeta Doan Department: [facility] Room: Gender: Female Director Corporate Sales: OLY : 1940 Requested By: Order Number: [id number] Reading MD: Gonzalez Hill Measurements Intervals [place] Rate: 60 P: 62 [place]: 156 QRS: 17 QRSD: 92 T: 46 QT: 426 QTc: 426 Interpretive Statements Normal sinus rhythm Minimal voltage criteria for LVH, may be normal variant ( [place]ad product ) Electronically Signed On 02-18-2024 19:03:31 PST by Gonzalez Hill
[2024-02-17 09:01] LABS: Add Manual Diff / Slide Review NO; Basophils Absolute Auto 0 /uL (0-100); Basophils Percent Auto 0.7 % (0-2); Eosinophils Absolute Auto 100 /uL (0-450); Eosinophils Percent Auto 1.3 % (2-4); Hemoglobin 13.6 g/dL (12.0-16.0); Lymphocytes Absolute Auto 800 /uL (1100-4500); Lymphocytes Percent Auto 12.8 % (25-40); Mean Corpuscular HGB Conc 33.1 % (30-36); Mean Corpuscular Hemoglobin 32.5 PG (26-34); Monocytes Absolute Auto 500 /uL (0-900); Monocytes Percent Auto 8.4 % (3-14); Neutrophils Absolute Auto 4900 /uL (1500-7000); Neutrophils Percent Auto 76.8 % (50-75); Platelet Count 233 X10^3/uL (150-400); Red Blood Cell Count 4.19 X10^6/uL (4.0-5.2); Red Cell Distribution Width 13.1 % (11.6-14.8); White Blood Cell Count 6.4 X10^3/uL (4.5-11.0)
[2024-02-17 09:07] LABS: Prothrombin Time 11.5 SECONDS (9.4-12.5)
[2024-02-17 09:10] LABS: PTT Partial Thromboplastin Tim 58 SECONDS (25.1-36.5)
[2024-02-17 09:15] LABS: Alanine Aminotransferase 24 IU/L (<35); Albumin 4.2 g/dL (3.5-5.0); Albumin Globulin Ratio 1.6 (1.0-2.8); Alkaline Phosphatase 71 U/L (38-126); Aspartate Aminotransferase 31 IU/L (14-36); BUN Creatinine Ratio 27.1 (6-22); Bilirubin Total 0.6 mg/dL (0.2-1.3); Blood Urea Nitrogen 23 mg/dL (7-17); Calcium 9.7 mg/dL (8.4-10.2); Carbon Dioxide 25 mmol/L (22-32); Chloride 104 mmol/L (98-107); Creatine Kinase 75 U/L (30-135); Estimated Glomerular Filt Rate > 60 mL/min (>60); Globulin 2.7 g/dL (1.7-4.1); Glucose 142 mg/dL (80-110); HEMOLYSIS < 15 (0-50); Lipase 131 U/L (23-300); Magnesium 1.9 mg/dL (1.6-2.3); Potassium 3.8 mmol/L (3.4-5.1); Sodium 135 mmol/L (137-145); Total Protein 6.9 g/dL (6.3-8.2)
[2024-02-17 09:26] LABS: NT-proBNP (BNP-Adult 18+) 184 pg/mL (<450); Troponin I < 0.012 ng/mL (0.01-0.034)
--- NOTE | 2024-02-17 09:41 | ED_ITS ---
HPI - Chest Pain General Chief Complaint: Chest Pain Stated Complaint: heart pain Time Seen by Provider: 02/17/24 09:37 Source: patient, RN notes reviewed and old records reviewed Mode of arrival: Ambulatory Limitations: no limitations Limitations: no limitations History of Present Illness HPI narrative: This is an 83-year-old female history of hypertension, hypothyroidism dyslipidemia who presents with complaint of left-sided chest discomfort. She states she woke up at 6:45 a.m. this morning was feeling quite anxious as she was supposed to fly to [place] today. States she felt a pinching sensation in the left chest and a localized region. Denies any radiation. States it is had resolved. She states she has a history of costochondritis but states this feels different. Denies any shortness of breath, no diaphoresis no nausea or vomiting, no swelling of extremities. Has not had symptoms similar in the past. She does note that her monitor showed a heart rate in the 120s or 130s when this occurred which resolved. She states no recent long-distance travel. Takes medication including lisinopril, sertraline, Synthroid, atorvastatin daily. No aspirin or anticoagulants. Has a history of left-sided mastectomy after having breast cancer in 2012 had radiation tamoxifen had recurrence had mastectomy and was on oral medication for about 10 years. [facility] to follow up more locally. Allergy to erythromycin. No tobacco, alcohol or recreational drugs. States her mom from stroke complications, dad from Alzheimer's in old age. Has 2 brothers 1 did have a brain aneurysm which was treated. Related Data Previous Rx's Medication Instructions Recorded estradiol 0.01% (0.1 mg/gram) 0.25 appful vaginal DAILY PRN 11/22/22 vaginal cream atrophic vaginitis #42.5 grams atorvastatin 20 mg tablet 20 mg PO DAILY #90 tabs 06/10/23 levothyroxine 112 mcg tablet 112 mcg PO QDAY #90 tabs 06/10/23 (Synthroid) sertraline 50 mg tablet (Zoloft) 50 mg PO QDAY #90 tabs 06/10/23 triamcinolone acetonide 0.1 % 1 applic topical DAILY #30 grams 06/10/23 topical ointment lisinopril 10 mg tablet 10 mg PO DAILY #90 tabs 12/08/23 Allergies Allergy/AdvReac Type Severity Reaction Status Date / Time Beta-Blockers Allergy Mild UNKNOWN Verified 10/07/23 10:05 (Beta-Adrenergic Bloc erythromycin base Allergy Mild N/V Verified 10/07/23 10:05 [ERYTHROMYCIN BASE] sulindac [From CLINORIL] Allergy Mild RASH Verified 10/07/23 10:05 Review of Systems Review of Systems ROS Unobtainable: All systems reviewed & are unremarkable except as noted in HPI and below Patient History Medical History Hypertension Hypothyroid Hearing deficit Psoriasis (~2013) Vertigo (~2012) Abnormal Pap smear of cervix GERD (gastroesophageal reflux disease) Hypertension Breast cancer Depression Osteopenia (~2014) Hypothyroidism (~1979) Malignant neoplasm of female breast Surgical History No pertinent past surgical history Anesthesia History of lumpectomy (~1989) History of total mastectomy (~2011) History of hip replacement Family History Brother Age: 83 High cholesterol Overweight Mother Hypertension High cholesterol Stroke Father Dementia Grandfather Stroke Grandmother No problems noted. Grandmother Stomach cancer Social History marital status: household members: none Smoking Status: Never smoker alcohol intake: current substance use type: does not use Smoking Status: Never smoker alcohol intake frequency: holidays/special occasions only Substance Use Type: does not use Exam Narrative Exam Narrative: GENERAL: Alert and oriented x three, female in no acute distress HEENT: Head normocephalic, atraumatic, EOMI, pupils reactive, face symmetric, moist mucous membranes NECK: Supple, full range of motion CARDIOVASCULAR: Regular rate and rhythm without murmurs, rubs or gallops. RESPIRATORY: Breath sounds equal bilaterally, no wheezes rales or rhonchi. ABDOMEN: Soft, nontender. Normoactive bowel sounds all 4 quadrants. No guarding or rebound, rigidity, no mass : No CVA tenderness EXTREMITIES: Normal range of motion, no clubbing or edema. Neurovascularly intact NEUROLOGICAL: Cranial nerves II through XII grossly intact. Moving all extremities SKIN: Warm, dry, no petechiae, no rashes or lesions. Initial Vital Signs Initial Vital Signs: Vital Signs Pulse Rate 65 02/17/24 08:44 Pulse Oximetry 97 02/17/24 08:44 Course Orders Ordered: ED Orders 02/17/24 10:48 Trop I [Troponin I] Stat 02/17/24 11:01 EKG-12 Lead Stat Discontinued Medications Aspirin (Aspirin 81 Mg Chew Tab) 324 mg PO NOW ONE Stop: 02/17/24 10:07 Last Admin: 02/17/24 10:32 Dose: 324 mg Documented By: MARCO A Nitroglycerin (Nitroglycerin 0.4 Mg Sl Tab) 0.4 mg SL NOW ONE Stop: 02/17/24 10:05 Last Admin: 02/17/24 10:26 Dose: Not Given Documented By: MARCO A Vital Signs Vital signs: Vital Signs - 8 hr 02/17/24 11:45 02/17/24 11:46 02/17/24 11:50 Temperature 97.6 F 97.6 F Pulse Rate 113 H Blood Pressure 168/73 H Pulse Oximetry 97 MDM - Chest Pain Lab Data 02/17/24 08:50 02/17/24 08:50 Labs: Lab Results 02/17/24 02/17/24 Range/Units 08:50 10:48 WBC 6.4 (4.5-11.0) X10^3/uL RBC 4.19 (4.0-5.2) X10^6/uL Hgb 13.6 (12.0-16.0) g/dL Hct 41.0 (36-46) % MCV 98.0 (80-100) fL MCH 32.5 (26-34) PG MCHC 33.1 (30-36) % RDW 13.1 (11.6-14.8) % Plt Count 233 (150-400) X10^3/uL Neut % (Auto) 76.8 H (50-75) % Lymph % (Auto) 12.8 L (25-40) % Turner % (Auto) 8.4 (3-14) % Eos % (Auto) 1.3 L (2-4) % Baso % (Auto) 0.7 (0-2) % Neut # (Auto) 4900 (4203-7040) /uL Lymph # (Auto) 800 L (5577-3217) /uL Turner # (Auto) 500 (0-900) /uL Eos # (Auto) 100 (0-450) /uL Baso # (Auto) 0 (0-100) /uL PT 11.5 (9.4-12.5) SECONDS INR 1.0 (0.9-1.3) APTT 58 H (25.1-36.5) SECONDS Sodium 135 L (137-145) mmol/L Potassium 3.8 (3.4-5.1) mmol/L Chloride 104 (98-107) mmol/L Carbon Dioxide 25 (22-32) mmol/L BUN 23 H (7-17) mg/dL Creatinine 0.85 (0.52-1.04) mg/dL Estimated GFR > 60 (>60) mL/min BUN/Creatinine Ratio 27.1 H (6-22) Glucose 142 H (80-110) mg/dL Calcium 9.7 (8.4-10.2) mg/dL Magnesium 1.9 (1.6-2.3) mg/dL Total Bilirubin 0.6 (0.2-1.3) mg/dL AST 31 (14-36) IU/L ALT 24 (<35) IU/L Alkaline Phosphatase 71 (38-126) U/L Total Creatine Kinase 75 (30-135) U/L Troponin I < 0.012 < 0.012 (0.01-0.034) ng/mL NT-Pro-B Natriuret Pep 184 (<450) pg/mL Total Protein 6.9 (6.3-8.2) g/dL Albumin 4.2 (3.5-5.0) g/dL Globulin 2.7 (1.7-4.1) g/dL Albumin/Globulin Ratio 1.6 (1.0-2.8) Lipase 131 (23-300) U/L Imaging Data Chest x-ray: Radiologist's Impression: Neeta Doan??83??F??1940 ? Allergy/Adv: Beta-Blockers (Beta-Adrenergic Bloc, erythromycin base, sulindac (More??) Close Chest X-Ray (Signed) Ronny Hays - 02/17/24 Bone Densitometry (Signed) Ang Lester - 09/02/23 Chest X-Ray (Signed) Yuni Medina - 07/09/23 Mammogram Screening (Signed) Adarsh Grace - 07/01/23 Hip MRI (Signed) Wilfrid Huang - 02/14/23 Hip X-Ray (Signed) MedinaYuni - 10/30/22 Mammogram Screening (Signed) Guillermina Ch - 06/27/22 Chest X-Ray (Signed) Germain Syed - 03/25/22 Telemetry Strips 10/20/18 Myocardial Perfusion Scan Nuc Med (Signed) Mary Jo Mcfaddenjustin - 01/20/18 Echocardiogram Ultrasound (Signed) Francis Smileyev - 01/20/18 Telemetry Strips 01/19/18 Chest X-Ray (Signed) VivianMelinda - 01/19/18 DEXA Result 10/14/17 Launch?[address] [address] XRay Report Signed Patient: Neeta Doan MR#: [id number] : 1940 Acct:[id number] Age/Sex: 83 / F Date of Service: 02/17/24 Loc: ED Accession Number: [id number] Procedure: XR chest 1V Ordering Provider: Savita Eddy D.O. PROCEDURE: XR CHEST 1V INDICATIONS: chest pain TECHNIQUE: One view of the chest was acquired. COMPARISON: None. FINDINGS: Surgical changes and devices: Surgical clips project over the left axilla and mediastinum. Lungs and pleura: Lungs are clear. No pleural effusions or pneumothorax. Mediastinum: Mediastinal contours appear normal. Heart size is normal. Bones and chest wall: No suspicious bony lesions. Overlying soft tissues appear unremarkable. IMPRESSION: No acute cardiopulmonary abnormality is seen. Dictated by: Ronny Hays M.D. on 02/17/2024 at 9:19 Approved by: Ronny Hays M.D. on 02/17/2024 at 9:20 ECG Data Attestation: I personally reviewed and interpreted this ECG as follows: Prior ECG tracings: available for review Interpretation: EKG shows sinus rhythm rate of 60 NV 156 QRS of 92 QTC of 427, little bit of elevation in V2 and V3 but appears similar to prior from 05/09/2022. EKG 2. Sinus bradycardia rate of 56 NV 160 QRS 86 QTC of 428, no acute or dynamic ST changes. Appears similar to prior from earlier today as well as 2022. MDM Narrative Medical decision making narrative: 83-year-old female with a brief episode of chest pain early this morning in the left side that felt like a pinching. Noted heart rate was elevated at 120 on her Apple watch during this episode denies any symptoms currently. Does not have any history of known arrhythmias. Has not had any long distance travel tor greater than 6 months. Labs show white count of 6.4 hemoglobin of 13.6 platelets of 233 predominance of neutrophil, sodium is 135 potassium 3.8 chloride 104 CO2 is 25 with a BUN 23 creatinine 0.84 glucose of 142 LFTs are negative troponins less than 0.012 with a BNP of 184 and a lipase of 131. Repeat troponin is less than 0.012 EKG shows sinus rhythm rate of 60 NV 156 QRS of 92 QTC of 427, little bit of elevation in V2 and V3 but appears similar to prior from 05/09/2022. Repeat EKG appears similar to earlier Chest x-ray shows no acute change Patient received aspirin 324 mg. Nitro was ordered but patient's symptoms had resolved. Patient describes heart rate elevated she had chest discomfort described as pinching in the left side without any radiation or other symptoms. She states it is since resolved has not had any persistent or recurrent arrhythmias appreciated here suspect she may have had arrhythmia causing her symptoms but would recommend follow up for further evaluation does have some cardiac risk factors. Discharge Plan Departure Patient Disposition: Home Clinical Impression: Palpitations, Chest pain Instructions: DI for Atypical Chest Pain Activity Restrictions/Additional Instructions: Follow up with your physician for recheck, your chest discomfort may have been related to the speed of your heart rate, it is possible you may have had an arrhythmia I would recommend follow up for Holter monitor and/or ZIO patch and further workup. Please return if you have recurrent symptoms, recurrent chest pain or pressure, lightheadedness or passing out, shortness of breath, new swelling of your extremities, nausea or vomiting, or other new or concerning changes. Prescriptions: No Action estradiol 0.01 % (0.1 mg/gram) cream 0.25 appful vaginal DAILY PRN (Reason: atrophic vaginitis) Qty: 42.5 1RF Rx Instructions: Fingertip size amount to external area and small amount inside vaginal opening every night for 2 weeks as needed lisinopril 10 mg tablet 10 mg PO DAILY Qty: 90 3RF sertraline [Zoloft] 50 mg tablet 50 mg PO QDAY Qty: 90 3RF atorvastatin 20 mg tablet 20 mg PO DAILY Qty: 90 3RF levothyroxine [Synthroid] 112 mcg tablet 112 mcg PO QDAY Qty: 90 3RF triamcinolone acetonide 0.1 % ointment 1 applic topical DAILY Qty: 30 1RF Rx Instructions: Apply to affected area once daily as needed for eczema Referrals: Cyril Griggs MD [Primary Care Provider] - Stand Alone Forms: Patient Portal/API/Survey
[2024-02-17] MEDS: ASPIRIN 81 MG CHEW TAB 324 MG PO (10:32)
--- NOTE | 2024-02-17 11:01 | EKG_ITS ---
[address] [address] Test Date: 2024-02-17 Pat Name: Neeta Doan Department: [facility] Room: Gender: Female Networking Specialist: ELIE : 1940 Requested By: Order Number: [id number] Reading MD: Gonzalez Hill Measurements Intervals [place] Rate: 56 P: 56 NC: 160 QRS: 11 QRSD: 86 T: 34 QT: 444 QTc: 428 Interpretive Statements Sinus bradycardia Minimal voltage criteria for LVH, may be normal variant ( [place] product ) Electronically Signed On 02-18-2024 19:03:37 PST by Gonzalez Hill
[2024-02-17 11:18] LABS: Troponin I < 0.012 ng/mL (0.01-0.034)
== END 2024-02-17 11:51 | disposition home or self-care (01) ==
PROVIDERS: Emergency Provider Emergency Medicine; PCP Family Medicine
DX: R00.2 Palpitations (principal); R07.9 Chest pain, unspecified; R00.1 Bradycardia, unspecified
CPT/HCPCS: 36415; 71045; 80053; 82550; 83690; 83735; 83880; 84484; 85025; 85610; 85730; 93005; 99284

== ENCOUNTER → 2024-03-01 08:08 | Outpatient (CLI) | payer MEDICARE, OTHER, SELFPAY ==
[2018-01-19 21:35] VITALS: BMI 23.2
== END ==
PROVIDERS: PCP Family Medicine; Referring Provider Family Medicine; Visit Provider Family Medicine
DX: R07.9 Chest pain, unspecified (principal)
CPT/HCPCS: 93246; 93248

== ENCOUNTER → 2024-03-16 09:56 | Outpatient (CLI) | payer MEDICARE, OTHER, SELFPAY ==
[2018-01-19 21:35] VITALS: BMI 23.2
--- NOTE | 2024-03-16 09:57 | DI.NM.S_ITS ---
PROCEDURE: NM WILBERT PERF SPECT REST & STR Rest and exercise myocardial perfusion SPECT with gated imaging and ejection fraction RADIOPHARMACEUTICAL: 12.5 mCi Tc-99m sestamibi IV at rest and 26.4 mCi Tc-99m sestamibi IV at peak exercise. A 1 day-protocol was performed. INDICATIONS: cest pain and palpations PQRS ATTESTATIONS: Measure 322 - Is this imaging test primarily performed on a low-risk surgery patient for preoperative evaluation within 30 days preceding their low-risk non-cardiac surgery? Low-risk surgery is defined as cardiac or myocardial infarction less than 1%, including (but not limited to) endoscopic procedures, superficial procedures, cataract surgery, and excisional breast surgery: Answer: No Measure 323 - Is this imaging test performed primarily for the monitoring of an asymptomatic patient who had percutaneous coronary intervention on the visit date or within 2 years of the visit date? Answer: No Measure 324 - Is this imaging test performed primarily for the initial detection and risk assessment on an asymptomatic, low coronary heart disease patient? Low CHD risk definition = clinicians should consider the maximum number of available patient factors used to estimate risk based on [place] (ATP III criteria), typically age, gender, diabetes, smoking status, and use of blood pressure medication, and integrate age appropriate estimates for missing elements, such as LDL or standard blood pressure. Answer: No TECHNIQUE: Radiopharmaceutical was injected at peak stress test, and also at rest. SPECT images were obtained. SPECT myocardial perfusion images were displayed in short axis, horizontal long axis, and vertical long axis views. Gated images were reviewed using [employer]rol[employer] software. COMPARISON: None. CARDIAC STRESS: A standard Matt treadmill exercise tolerance test was performed by the patient under the supervision of an attending staff. The patient exercised for 3 minutes and 0 seconds per the standard Matt protocol but then was modified for a total exercise time of 4 minutes and 1 second.; functional aerobic impairment (CAMELIA) is +33%. Hemodynamic data: There is normal blood pressure and heart rate response to exercise stress. Patient achieved 99 of maximum predicted heart rate at peak exercise. Symptoms: Patient denied chest pain during exercise. EKG: No diagnostic EKG changes of ischemia; isolated PVCs noted at peak stress. FINDINGS: Raw data: There is good myocardial labeling by radiotracer. No significant motion artifacts. Xzva-uf-lkgbi ratio is 0.26 (normal is less than 0.38 for sestamibi tracer, and less than 0.50 for thallium tracer). Left ventricle function: Gated images demonstrate normal left ventricle wall thickening. No segmental wall motion abnormality. No transient ischemic dilation; TID is 1.00 (normal less than 1.3). The left ventricle resting end-diastolic volume is 106 mL. Left ventricle stress ejection fraction is 71%; normal values are above 45%. Myocardial perfusion: There is normal distribution of activity in the left and right ventricular myocardium. No fixed or reversible perfusion defects. IMPRESSION: 1. Negative exercise myocardial perfusion scan for ischemia and infarction. 2. Below average exercise tolerance. 3. When compared with previous study, no changes have occurred. Dictated by: Balaji Huang M.D. on 03/16/2024 at 17:07 Approved by: Balaji Huang M.D. on 03/16/2024 at 17:10
== END ==
PROVIDERS: PCP Family Medicine; Referring Provider Family Medicine; Visit Provider Family Medicine
DX: R07.9 Chest pain, unspecified (principal); R00.2 Palpitations
CPT/HCPCS: 78452; 93017; A9502

== ENCOUNTER 2024-03-25 16:40 | Emergency (ER) | payer MEDICARE, OTHER, SELFPAY ==
[2018-01-19 21:35] VITALS: BMI 23.2
[2024-03-25 16:44] VITALS: BP 208/90; PULSE 65; RESP 18; TEMP 36.5; O2SAT 99; BMI 24.4
--- NOTE | 2024-03-25 16:49 | DI.US.S_ITS ---
PROCEDURE: US PERIPH VENOUS LOW EXTREM LT INDICATIONS: pain from lower leg to groin TECHNIQUE: Real-time imaging, as well as color and pulse Doppler interrogation, were performed of the lower extremity deep veins from the inguinal ligament to the popliteal fossa, with documentation of the visualized calf veins. COMPARISON: None. FINDINGS: The common femoral, femoral, popliteal, and the visualized calf veins are normally compressible, and free of intraluminal thrombus. Color and pulse Doppler demonstrate normal phasic intraluminal flow. There is normal augmentation response to distal compression maneuver. A medial popliteal cyst measures 6.1 x 4.9 x 1.4 cm IMPRESSION: 1. No findings of lower extremity deep venous thrombosis. 2. Medial popliteal Rojas cyst. Approved by: Adarsh Grace M.D. on 03/25/2024 at 17:50
--- NOTE | 2024-03-25 18:15 | PC.NURSE ---
Unable to locate pt in lobby,attempted to call pt,no answer,will attempt again
--- NOTE | 2024-03-25 18:44 | PC.NURSE ---
Checked in lobby 2nd time,pt now in the lobby. Informed her that I attempted to find her and couldn't locate her but she will be next in room.
--- NOTE | 2024-03-25 19:52 | ED_ITS ---
HPI - Extremity Problem General Chief complaint: Extremity Problem,Nontraumatic Stated complaint: sent by [facility], lower leg px concern of clot Time Seen by Provider: 03/25/24 19:31 Source: patient Mode of arrival: Ambulatory History of Present Illness HPI Narrative: 83-year-old female here for evaluation from the walk-in clinic for concerns of a blood clot in the left lower extremity. Patient received the DVT ultrasound prior to my evaluation. Patient reports that she recently was seen here in the emergency department and was diagnosed with atypical chest pain. She was had discomfort in the front of her left leg since having the stress test. No fevers. No chest pain or shortness of breath. Pain is localized in the front of her left leg. No calf pain. No knee pain. No ankle pain. Related Data Previous Rx's Medication Instructions Recorded estradiol 0.01% (0.1 mg/gram) 0.25 appful vaginal DAILY PRN 11/22/22 vaginal cream atrophic vaginitis #42.5 grams atorvastatin 20 mg tablet 20 mg PO DAILY #90 tabs 06/10/23 levothyroxine 112 mcg tablet 112 mcg PO QDAY #90 tabs 06/10/23 (Synthroid) sertraline 50 mg tablet (Zoloft) 50 mg PO QDAY #90 tabs 06/10/23 triamcinolone acetonide 0.1 % 1 applic topical DAILY #30 grams 06/10/23 topical ointment lisinopril 10 mg tablet 10 mg PO DAILY #90 tabs 12/08/23 Allergies Allergy/AdvReac Type Severity Reaction Status Date / Time Beta-Blockers Allergy Mild UNKNOWN Verified 02/19/24 08:44 (Beta-Adrenergic Bloc erythromycin base Allergy Mild N/V Verified 02/19/24 08:44 [ERYTHROMYCIN BASE] sulindac [From CLINORIL] Allergy Mild RASH Verified 02/19/24 08:44 Review of Systems Review of Systems ROS Unobtainable: All systems reviewed & are unremarkable except as noted in HPI and below Patient History Medical History Hypertension Hypothyroid Hearing deficit Psoriasis (~2013) Vertigo (~2012) Abnormal Pap smear of cervix GERD (gastroesophageal reflux disease) Hypertension Breast cancer Depression Osteopenia (~2014) Hypothyroidism (~1979) Malignant neoplasm of female breast Surgical History No pertinent past surgical history Anesthesia History of lumpectomy (~1989) History of total mastectomy (~2011) History of hip replacement Family History Brother Age: 83 High cholesterol Overweight Mother Hypertension High cholesterol Stroke Father Dementia Grandfather Stroke Grandmother No problems noted. Grandmother Stomach cancer Social History marital status: household members: none Smoking Status: Never smoker alcohol intake: current substance use type: does not use Smoking Status: Never smoker alcohol intake frequency: holidays/special occasions only Exam Initial Vital Signs Initial Vital Signs: Vital Signs Temperature 97.7 F 03/25/24 16:44 Pulse Rate 65 03/25/24 16:44 Respiratory Rate 18 03/25/24 16:44 Blood Pressure 208/90 H 03/25/24 16:44 Pulse Oximetry 99 03/25/24 16:44 Oxygen Delivery Method Room Air 03/25/24 16:44 Const General: cooperative, comfortable and No ill appearing HENDC Head: normal to inspection and normocephalic Skin General: no rashes or lesions noted Extrem Other: Patient reports discomfort on the front of her left lower extremity. No tenderness along the calf muscle. No swelling. Left knee is unremarkable. Left ankle is unremarkable. Course Orders Ordered: ED Orders 03/25/24 16:49 US periph venous low extrem lt Stat Vital Signs Vital signs: Vital Signs - 8 hr 03/25/24 20:01 Pulse Rate 52 L Respiratory Rate 16 Blood Pressure 192/91 H Pulse Oximetry 97 Oxygen Delivery Method Room Air MDM - Extremity (Nontraumatic) Imaging Data US - DVT: Radiologist's Impression: PROCEDURE: CT ABDOMEN PELVIS W CON INDICATIONS: constipation vs obstruction TECHNIQUE: After the administration of intravenous contrast, axial sections acquired from the lung bases to the pubic symphysis. Coronal and sagittal reformats were performed. For radiation dose reduction, the following was used: automated exposure control, adjustment of mA and/or kV according to patient size. COMPARISON: [facility], CT, CT KIDNEY URETER BLADDER (KUB), 02/03/2021, 1:12. FINDINGS: Image quality: Diagnostic. Lower Chest: No significant findings. ABDOMEN: Liver: No solid mass. Liver is hypoattenuating, compatible with diffuse fatty infiltration. Gallbladder: No radiopaque gallstones or wall thickening. Biliary ducts: No biliary dilation. Pancreas: No ductal dilation. Spleen: Size is within normal limits. Adrenal Glands: No adrenal nodules. Kidneys and Ureters: No hydronephrosis. No solid mass. No complex renal cystic lesion which requires follow up. Stomach and Bowel: Normal retrocecal appendix. Small and large bowel loops are nondistended. Mild colonic stool. Peritoneum: No abnormal intraperitoneal fluid. No free air. Ventral Wall: No significant ventral hernia. Abdominal Nodes: No retroperitoneal or mesenteric adenopathy by size criteria. Vessels: Aorta and inferior vena cava are normal in size. PELVIS: Pelvic Organs: Intrauterine device is seen in expected position. Ovaries are symmetric in size. Bladder: No bladder wall thickening, accounting for underdistention. Pelvic Nodes: No enlarged lymph nodes. Miscellaneous: No inguinal hernias are seen. Bones: No aggressive osseous abnormality. IMPRESSION: 1. No acute abnormality identified in the abdomen or pelvis. Mild colonic stool. Normal appendix. No renal or ureteral calculus. 2. Diffuse hepatic steatosis. MDM Narrative Medical decision making narrative: Physical exam is not consistent with a DVT. Ultrasound shows no signs of DVT. I suspect that the discomfort is muscular most likely from having to walk up hill in the treadmill for her stress test. Low suspicion for fracture. There was no indication there cellulitis. Reassured patient. Provided return precautions and follow-up instructions. She expressed understanding and agreement with the plan. Discharge Plan Departure Patient Disposition: Home Clinical Impression: Left leg pain Instructions: DI for Leg Pain Activity Restrictions/Additional Instructions: I suspect that the discomfort that you are having is because of the stress test. There were no blood clots noted on the ultrasound. Contact your primary doctor for a follow-up. Return to the emergency department for new symptoms. Prescriptions: No Action estradiol 0.01 % (0.1 mg/gram) cream 0.25 appful vaginal DAILY PRN (Reason: atrophic vaginitis) Qty: 42.5 1RF Rx Instructions: Fingertip size amount to external area and small amount inside vaginal opening every night for 2 weeks as needed lisinopril 10 mg tablet 10 mg PO DAILY Qty: 90 3RF sertraline [Zoloft] 50 mg tablet 50 mg PO QDAY Qty: 90 3RF atorvastatin 20 mg tablet 20 mg PO DAILY Qty: 90 3RF levothyroxine [Synthroid] 112 mcg tablet 112 mcg PO QDAY Qty: 90 3RF triamcinolone acetonide 0.1 % ointment 1 applic topical DAILY Qty: 30 1RF Rx Instructions: Apply to affected area once daily as needed for eczema Referrals: Cyril Griggs MD [Primary Care Provider] - Stand Alone Forms: Patient Portal/API/Survey
[2024-03-25 20:01] VITALS: BP 192/91; PULSE 52; RESP 16; O2SAT 97
== END 2024-03-25 20:01 | disposition home or self-care (01) ==
PROVIDERS: Emergency Provider Emergency Medicine; PCP Family Medicine
DX: M79.605 Pain in left leg (principal)
CPT/HCPCS: 93971; 99281; 99283

== ENCOUNTER → 2024-03-26 13:18 | Outpatient (CLI) | payer MEDICARE, OTHER, SELFPAY ==
[2018-01-19 21:35] VITALS: BMI 23.2
--- NOTE | 2024-03-26 13:19 | DI.ECHO.S_ITS ---
[facility] : : [id number] : : [place] : : [id number] : : Phone: [phone] Echocardiogram Report + + :Name: CHRISTIANO MARRUFO Study Date: 03/26/2024 Height: 63 in : :[facility] ReadingLocation: Weight: 138 lb : : Gender: Female BSA: 1.7 m2 : :: 1940 Age: 83 yrs BP: 118/47 mmHg: :Reason For Study: CHEST PAIN, PALPITATIONS : :Ordering Physician: SINDHU, : :ASHISH Performed By: Mariela Rojas : :Referring: ASHISH MANLEY : + + Interpretation Summary 1) Normal left ventricular thickness, size, wall motion, and systolic function (EF 60-65%). 2) Normal right ventricular size and function. 3) No significant valvular abnormalities. 4) Compared to the Echo done 01/20/2018, no significant change. Procedure: A two-dimensional transthoracic echocardiogram with color flow and Doppler was performed. The study quality was technically adequate. Comparison is made with the echocardiogram of 01/20/2018. The patient was in sinus bradycardia with heart rates between 51-67 bpm during the exam. Left Ventricle: The left ventricle is normal in size and wall thickness. The ejection fraction is estimated to be 60-65%. Left ventricular systolic function appears normal without focal wall motion abnormalities. Diastolic parameters suggest a relaxation abnormality of the left ventricle, consistent with probable normal filling pressures. Right Ventricle: The right ventricle is normal in size and function. Atria: The left atrial size is normal. Right atrial size is normal. There is no Doppler evidence for an interatrial shunt. Mitral Valve: There is a flat closure plane of the the mitral valve leaflets. There is trace mitral regurgitation. Aortic Valve: The aortic valve is trileaflet. The aortic valve opens well. There is no aortic valve stenosis. No aortic regurgitation is present. Tricuspid Valve: The tricuspid valve leaflets are thin and pliable. There is mild tricuspid regurgitation. The right ventricular systolic pressure is estimated to be at least 30 mmHg based on an estimated right atrial pressure of 3 mm Hg. Pulmonic Valve: The pulmonic valve leaflets are thin and pliable; valve motion is normal. There is mild pulmonic regurgitation. Great Vessels: The aortic root is normal size. The dimensions of the ascending aorta are normal. The IVC is of normal diameter and collapses greater than 50% with a sniff. This suggests a low right atrial pressure of 3 mm Hg. Pericardium/ Pleura There is no pericardial effusion. There is no pleural effusion. MMode/2D Measurements & Calculations LVIDd: 4.7 cm LVOT diam: 1.9 cm LVIDs: 3.3 cm Ao root diam: 2.8 cm FS: 29.8 % asc Aorta Diam: 3.2 cm IVSd: 0.77 cm Ao Arch Diam (Prox Trans): 2.6 cm LVPWd: 0.73 cm LV bellamy. diameter/BSA (cm/m^2): 2.8 LV sys. diameter/BSA (cm/m^2): 2.0 LA A2 area: 18.7 cm2 RA long axis: 5.1 cm LA A4 area: 14.4 cm2 RA area: 14.9 cm2 LA length (vol): 4.4 cm RA vol: 37.4 ml LA vol: 51.6 ml RA : 22.7 ml/m2 LA vol index: 31.3 ml/m2 IVC diam: 1.5 cm RVD1 (basal): 3.6 cm RVD2 (mid): 3.0 cm TAPSE: 2.0 cm Doppler Measurements & Calculations Ao V2 max: 184.4 cm/sec LVOT Max Chuy: 115.7 cm/sec Ao V2 mean: 127.4 cm/sec LV V1 max P.4 mmHg Ao max P.6 mmHg LV V1 VTI: 26.1 cm Ao mean P.3 mmHg WIN(I,D): 1.9 cm2 Ao V2 VTI: 37.8 cm WIN(V,D): 1.7 cm2 sev ratio: 0.69 WIN indexed to BSA (cm^2/m^2): 1.2 MV E max chuy: 59.5 cm/sec TR max chuy: 261.7 cm/sec MV A max chuy: 70.2 cm/sec TR max P.4 mmHg MV E/A: 0.85 PA V2 max: 116.0 cm/sec Med Peak E' Chuy: 6.5 cm/sec PA V2 mean: 74.0 cm/sec E/E' med: 9.1 PA mean P.6 mmHg Lat Peak E' Chuy: 11.0 cm/sec PA pr(Accel): 39.6 mmHg E/E' lat: 5.4 E/e' average: 7.3 MV dec time: 0.29 sec SV(LVOT): 72.5 ml Reading Physician:05:38 PM
== END ==
PROVIDERS: PCP Family Medicine; Referring Provider Family Medicine; Visit Provider Family Medicine
DX: R07.9 Chest pain, unspecified (principal); R00.2 Palpitations; I07.1 Rheumatic tricuspid insufficiency
CPT/HCPCS: 93306

== ENCOUNTER → 2024-07-10 10:53 | Outpatient (CLI) | payer MEDICARE, OTHER, SELFPAY ==
[2018-01-19 21:35] VITALS: BMI 23.2
--- NOTE | 2024-07-10 10:57 | DI.MG.S_ITS ---
MM screening mammo unilateral RT: 07/10/2024. BI-RADS: 2 CLINICAL: 84-year old female for right screening mammogram. No Tyrer-Cuzick risk score calculation due to the patient's personal history of breast cancer. Patient reports a history of left breast carcinoma diagnosed at age 71. Status-post left mastectomy with hormonal therapy. PRIOR EXAMS 07/01/2023, 06/27/2022, 06/26/2021, 06/06/2020. MAMMOGRAPHY TECHNIQUE: 2D and 3D (tomosynthesis) digital mammographic views obtained, with additional images as needed for full coverage. Current study was also evaluated with a Computer Aided Detection (CAD) system. DENSITY Right: B. There are scattered areas of fibroglandular density. MAMMOGRAPHY FINDINGS Right: Benign-appearing calcification and post-surgical changes noted on the right. There are no suspicious masses, calcifications, or other findings in the breast. No significant change from comparison. IMPRESSION: Right * No evidence of malignancy with benign findings. RECOMMENDATIONS Right * Annual screening mammography. OVERALL ASSESSMENT CATEGORY BI-RADS-2: Benign. The [employer] recommends annual screening mammography beginning at age 40 for women with average risk of breast cancer. ELECTRONICALLY SIGNED: Sandra Dougherty M.D. on 07/12/2024 at 12:39:40 PM PT Interpreting Station ID: [id number]
== END ==
LOC: MAMMO 10:56
PROVIDERS: PCP Family Medicine; Referring Provider Family Medicine; Visit Provider Family Medicine
DX: Z12.31 Encounter for screening mammogram for malignant neoplasm of breast (principal); Z85.3 Personal history of malignant neoplasm of breast; R92.321 Mammographic fibroglandular density, right breast; Z90.12 Acquired absence of left breast and nipple
CPT/HCPCS: 77063; 77067

== ENCOUNTER → 2024-07-30 07:20 | Outpatient (CLI) | payer MEDICARE, OTHER, SELFPAY ==
[2018-01-19 21:35] VITALS: BMI 23.2
[2024-07-30 08:38] LABS: Cholesterol 182 mg/dL (140-199); HDL Cholesterol 62 mg/dL (40-60); LDL Cholesterol Calculated 102 mg/dL (<100); Triglycerides 92 mg/dL (35-150)
[2024-07-30 09:03] LABS: TSH w/ Reflex to FT4 1.82 uIU/mL (0.47-4.68)
== END ==
PROVIDERS: PCP Family Medicine; Referring Provider Family Medicine; Visit Provider Family Medicine
DX: E78.2 Mixed hyperlipidemia (principal); E03.9 Hypothyroidism, unspecified
CPT/HCPCS: 36415; 80061; 84443